=== PATIENT | male | born 1970 | race African-American/Black ===

== ENCOUNTER → 2018-02-08 17:03 | Outpatient (CLI) | payer MEDICAID, SELFPAY | PROVIDERS: Family Provider Family Medicine Geriatric Medicine; PCP Family Medicine Geriatric Medicine; Visit Provider Family Medicine Geriatric Medicine | DX: E23.6 Other disorders of pituitary gland (principal); F52.0 Hypoactive sexual desire disorder | CPT/HCPCS: 36415; 84403; 84443 ==

== ENCOUNTER → 2018-07-26 16:17 | Outpatient (CLI) | payer MEDICAID, SELFPAY ==
[2018-07-26 17:20] LABS: Absolute Neutrophil Count 4.3 X10^3/uL (2.0-7.7); Basophil# 0.06 X10^3/uL; Basophil% 0.8 % (0-1); Eosinophils% 8.1 % (0-5); Hematocrit 43.9 % (40-54); Hemoglobin 14.5 g/dl (13.0-16.5); Lymphocyte % 26.9 % (19-41); Mean Corpuscular Hgb 28.2 pg (27.0-32.0); Mean Corpuscular Volume 85.2 fL (80-94); Mean Platelet Vol. 11.7 fl (6.2-12.0); Monocyte% 6.7 % (0-10); Neutrophil # 4.27 X10^3/uL (2.7-7.7); Neutrophil % 57.4 % (47-70); Platelet Count 165 K/mm3 (150-450); RBC Distribution Width CV 15.2 % (11.6-14.6); RBC Distribution Width SD 46.9 fl (35.1-43.9); Red Blood Count 5.15 M/mm3 (4.6-6.2); White Blood Count 7.4 K/mm3 (4.4-11.0)
[2018-07-26 17:23] LABS: POSITIVE COUNT NO; POSITIVE DIFFERENTIAL NO; POSITIVE MORPHOLOGY NO
[2018-07-26 17:51] LABS: AST(SGOT) 26 U/L (15-37); Alanine Aminotransfer ALT/SGPT 46 U/L (16-61); Albumin, Serum 3.9 g/dL (3.2-5.0); Alkaline Phosphatase 101 U/L (45-117); Anion Gap 10 (5-15); BUN 10 mg/dL (7-18); BUN/Creat Ratio 8.1 RATIO (10-20); Calcium,Total 8.8 mg/dL (8.5-10.1); Chloride 105 mmol/L (98-107); Creatinine, Serum 1.24 mg/dL (0.70-1.30); EST Glomerular Filtration Rate 66 mL/min (>60); Est Glom Filt Rate - Afr Amer 80 mL/min (>60); Globulin 3.9 g/dL (2.2-4.2); Glucose 93 mg/dL (74-106); Potassium 3.9 mmol/L (3.5-5.1); Protein, Total 7.8 g/dL (6.4-8.2); Sodium Level 142 mmol/L (136-145); Thyroid Stim Hormone (TSH) 0.85 uIU/mL (0.358-3.74)
== END ==
PROVIDERS: Family Provider Family Medicine Geriatric Medicine; PCP Family Medicine Geriatric Medicine; Visit Provider Family Medicine Geriatric Medicine
DX: R53.83 Other fatigue (principal)
CPT/HCPCS: 36415; 80053; 84443; 85025

== ENCOUNTER → 2019-08-01 | Outpatient (CLI) | payer SELFPAY ==
[2016-07-25 10:09] VITALS: BMI 23.9
[2019-08-01 17:44] LABS: Absolute Lymphocyte Count 2.36 X10^3/uL (0.83-4.51); Absolute Neutrophil Count 3.6 X10^3/uL (2.0-7.7); Basophil# 0.08 X10^3/uL; Basophil% 1.1 % (0-1); Eosinophil# 0.55 X10^3/uL; Eosinophils% 7.6 % (0-5); Hematocrit 44.7 % (40-54); Hemoglobin 14.3 g/dL (13.0-16.5); Lymphocyte # 2.36 X10^3/ul (4.0); Lymphocyte % 32.8 % (19-41); Mean Corpuscular Hgb 27.8 pg (27.0-32.0); Mean Corpuscular Volume 86.8 fL (80-94); Mean Platelet Vol. 11.6 fl (6.2-12.0); Monocyte# 0.55 X10^3/uL; Monocyte% 7.6 % (0-10); NRBC Flagged by Analyzer 0 % (0-5); Neutrophil # 3.64 X10^3/uL (2.7-7.7); Neutrophil % 50.6 % (47-70); Platelet Count 191 K/mm3 (150-450); RBC Distribution Width CV 14.9 % (11.6-14.6); RBC Distribution Width SD 47.9 fl (35.1-43.9); Red Blood Count 5.15 M/mm3 (4.6-6.2); White Blood Count 7.2 K/mm3 (4.4-11.0)
[2019-08-01 18:19] LABS: AST(SGOT) 33 U/L (15-37); Alanine Aminotransfer ALT/SGPT 49 U/L (16-61); Albumin, Serum 3.8 g/dL (3.2-5.0); Alkaline Phosphatase 90 U/L (45-117); Anion Gap 8 (5-15); BUN 7 mg/dL (7-18); BUN/Creat Ratio 5.9 RATIO (10-20); Calcium,Total 8.9 mg/dL (8.5-10.1); Chloride 107 mmol/L (98-107); Creatinine, Serum 1.18 mg/dL (0.70-1.30); EST Glomerular Filtration Rate 70 mL/min (>60); Est Glom Filt Rate - Afr Amer 85 mL/min (>60); Globulin 3.7 g/dL (2.2-4.2); Glucose 130 mg/dL (74-106); Potassium 3.7 mmol/L (3.5-5.1); Protein, Total 7.5 g/dL (6.4-8.2); Sodium Level 141 mmol/L (136-145); Thyroid Stim Hormone (TSH) 0.72 uIU/mL (0.358-3.74)
== END | disposition home or self-care (01) ==
LOC: POLAB3 16:08
PROVIDERS: Family Provider Family Medicine Geriatric Medicine; PCP Family Medicine Geriatric Medicine; Visit Provider Family Medicine Geriatric Medicine
DX: I10 Essential (primary) hypertension (principal); F52.8 Other sexual dysfunction not due to a substance or known physiological condition
CPT/HCPCS: 36415; 80053; 84403; 84443; 85025

== ENCOUNTER → 2022-02-17 | Outpatient (CLI) | payer OTHER, SELFPAY ==
[2022-02-17 17:00] LABS: Absolute Lymphocyte Count 1.68 X10^3/uL (0.83-4.51); Absolute Neutrophil Count 4.6 X10^3/uL (2.0-7.7); Basophil# 0.06 X10^3/uL; Basophil% 0.8 % (0-1); Eosinophil# 0.28 X10^3/uL; Eosinophils% 3.9 % (0-5); Hematocrit 43.3 % (40-54); Lymphocyte # 1.68 X10^3/ul (0.83-4.51); Lymphocyte % 23.7 % (19-41); Mean Corp Hgb Conc 32.3 g/dL (32-36); Mean Corpuscular Hgb 27.9 pg (27.0-32.0); Mean Corpuscular Volume 86.4 fL (80-94); Mean Platelet Vol. 11.1 fl (6.2-12.0); Monocyte# 0.47 X10^3/uL; Monocyte% 6.6 % (0-10); NRBC Flagged by Analyzer 0 % (0-5); Neutrophil # 4.58 X10^3/uL (2.7-7.7); Neutrophil % 64.7 % (47-70); Platelet Count 230 K/mm3 (150-450); RBC Distribution Width CV 14.7 % (11.6-14.6); RBC Distribution Width SD 46.9 fl (35.1-43.9); Red Blood Count 5.01 M/mm3 (4.6-6.2); White Blood Count 7.1 K/mm3 (4.4-11.0)
[2022-02-17 17:37] LABS: AST(SGOT) 25 U/L (15-37); Alanine Aminotransfer ALT/SGPT 31 U/L (16-61); Alkaline Phosphatase 84 U/L (45-117); Anion Gap 9 (5-15); BUN 8 mg/dL (7-18); BUN/Creat Ratio 6.6 RATIO (10-20); Calcium,Total 8.8 mg/dL (8.5-10.1); Chloride 107 mmol/L (98-107); Creatinine, Serum 1.22 mg/dL (0.70-1.30); EST Glomerular Filtration Rate 67 mL/min (>60); Est Glom Filt Rate - Afr Amer 81 mL/min (>60); Globulin 3.9 g/dL (2.2-4.2); Glucose 155 mg/dL (74-106); Potassium 3.6 mmol/L (3.5-5.1); Protein, Total 7.9 g/dL (6.4-8.2); Sodium Level 138 mmol/L (136-145)
[2022-02-18 12:52] LABS: Hemoglobin A1c 5.9 % (3.8-5.6)
== END | disposition home or self-care (01) ==
LOC: POLAB3 16:03
PROVIDERS: PCP Family Medicine Geriatric Medicine; Visit Provider Family Medicine Geriatric Medicine
DX: I10 Essential (primary) hypertension (principal); E23.6 Other disorders of pituitary gland; R73.9 Hyperglycemia, unspecified
CPT/HCPCS: 36415; 80053; 83036; 84403; 84443; 85025

== ENCOUNTER 2022-03-11 13:55 | Day surgery (SDC) | payer OTHER, SELFPAY ==
[2022-03-11] VITALS (7 sets, daily range): BP systolic 113–141; BP diastolic 67–91; PULSE 48–63; RESP 16–18; TEMP 36.2–37.1; O2SAT 100; BMI 33.7
[2022-03-11] MEDS: Lactated Ringers 1,000 ML 15 ML IV (14:26)
--- NOTE | 2022-03-11 15:15 | COLBX_PTH ---
PATIENT: RAFAT SAUCEDO LOC: EN U#:[id number] AGE/SX: 51/M ROOM: RE03/11/[address]: Dr. Solomon Morales DO : 1970 BED: DIS: 03/11/2022 SPEC #: [id number] RECD: 03/11/22 17:01 STATUS: DARLENE RIO #: [id number] YESENIA: 03/11/22 15:[address]: Solomon Morales DEPT: SURGICAL PATHOLOGY RECD BY: Holly Arthur ENTERED: 03/12/22 11:24 SP TYPE: COLON BX TRACEY DR: Dr. Gagandeep Huynh MD Tissues: A - Ileum, NOS B - COLON BIOPSY C - Sigmoid colon biopsy Procedures: Surgery Specimen Level IV HEADER OPERATION: Colonoscopy with biopsies ? open access (MAC) PRE-OP DIAGNOSIS: Screening TISSUE SUBMITTED: A ? Terminal ileum biopsy, B ? Random colon biopsy, C ? Sigmoid and rectum biopsy MICROSCOPIC DIAGNOSIS A. Terminal ileum, biopsy: Fragments of small intestinal mucosa, no pathologic diagnosis. B. Colon, random biopsy: Focal acute colitis. See microscopic description and comment. C. Sigmoid colon and rectum, biopsy: Moderate focal acute colitis. See microscopic description and comment. SJ:nathaniel 03/13/2022 COMMENT B & C. Correlation with clinical, endoscopic findings and appropriate follow up are necessary. MICROSCOPIC DESCRIPTION Slides are reviewed. B. The specimen shows fragments of colonic mucosa with focal minimal acute and chronic inflammatory cell infiltrate in the lamina propria, minimal cryptitis and crypt abscesses. Glandular distortion or granulomas are not seen. No evidence of dysplasia. C. The specimen shows fragments of colonic mucosa with focal moderate acute and chronic inflammatory cell infiltrate in the lamina propria, cryptitis and crypt abscesses. Glandular distortion or granulomas are not seen. No evidence of dysplasia. GROSS DESCRIPTION A - Received in fixative is one container labeled with the patient's name and designated terminal ileum biopsy. The specimen consists of two irregular fragments of light rodriguez soft tissue that in aggregate measure 0.7 x 0.3 x 0.1 cm. The specimen is totally submitted in one cassette. B - Received in fixative is one container labeled with the patient's name and designated random colon biopsy. The specimen consists of multiple irregular fragments of light rodriguez soft tissue that in aggregate measure 2.5 x 1 x 0.1 cm. The specimen is totally submitted in one cassette. C - Received in fixative is one container labeled with the patient's name and designated sigmoid and rectum. The specimen consists of multiple irregular fragments of light rodriguez soft tissue that in aggregate measure 1.2 x 0.5 x 0.1 cm. The specimen is totally submitted in one cassette. / AM:nathaniel 03/12/2022 TC:2 CPT: 67396 x3
--- NOTE | 2022-03-11 15:17 | HP.PCM_ITS ---
HPI - General HPI Narrative RAFAT SAUCEDO, is a 51 M who presents today for screening colonoscopy. He has past medical history of hyperlipidemia. He is not take any medicines on a daily basis. He is not have any abdominal pain. He is not have any chest pain or shortness of breath. He is not have any nausea, vomiting or diarrhea. He has no family history of colon or or GI malignancy. [facility] Medical History (Updated 03/05/22 @ 10:39 by Christiane Chakraborty) Biceps muscle tear Hyperlipidemia Melena Poor historian Smoker Wears glasses Home Medications albuterol sulfate [Ventolin HFA] 1 - 2 puff INHALATION Q4H PRN PRN #1 inhaler 0 12/10/15 [Rx Last Taken Unknown] Allergy/AdvReac Type Severity Reaction Status Date / Time No Known Allergies Allergy Verified 03/11/22 14:15 Family History (Updated 02/21/22 @ 13:43 by Tammy Hernandez) Father Myocardial infarction Surgical History (Updated 02/21/22 @ 13:42 by Tammy Hernandez) History of surgery on upper extremity History of surgery on wrist Social History (Updated 02/21/22 @ 13:44 by Tammy Hernandez) Smoking Status: Current some day smoker tobacco type: e-cigarettes Electronic Cigarette Use: with nicotine ROS Review of Systems ROS Unobtainable: other Constitutional Constitutional: Denies fatigue, fever(s), poor appetite, weight gain or weight loss ENT HEENT: Denies mouth lesions Cardiovascular Cardiovascular: Denies abdominal bloating, abdominal edema or abdominal pain Respiratory/Chest Respiratory/Chest: Denies change in mental status, change in phlegm color, chest congestion or chest tightness Gastrointestinal Gastrointestinal: Denies belching, bloating, change in bowel habits, change in stool character, chewing difficulty, coffee ground emesis, constipation, cram ping, diarrhea, dyspepsia, dysphagia, early satiety, excessive flatus, fecal incontinence, heartburn, hematemesis, hematochezia, hemorrhoids, loose stools, melena, nausea, odynophagia, rectal bleeding, tenesmus, vomiting or weight changes Genitourinary Genitourinary: Denies abdominal discomfort, burning urination or itching Musculoskeletal Musculoskeletal: Reports as per HPI; Denies muscle weakness or myalgias Integumentary Integumentary: Denies jaundice Neurologic Neurologic: Denies lack of coordination or weakness Psychiatric Psychiatric: Denies confusion, depression, memory loss, mood swings, paranoia or suicidal ideation Endocrine Endocrinology: Denies systems reviewed and no addt'l complaints, except as documented Hematologic/Lymphatic Hematologic/Lymphatic: Denies anemia, easy bleeding, easy bruising or lymphadenopathy Allergic/Immunologic Allergic/Immunologic: Denies systems reviewed and no addt'l complaints, except as documented Vital Signs Vital Signs Vital Signs: 03/11/22 14:17 03/11/22 14:18 Temperature 97.4 F L Temperature Source Temporal Pulse Rate 61 Respiratory Rate 18 Respiratory Pattern Normal Blood Pressure 139/78 H Blood Pressure Mean 98 Blood Pressure Source Monitor Blood Pressure Position Semi-Fowlers Blood Pressure Location Left Arm Pulse Ox 100 Oxygen Delivery Method Room Air Weight Weight: 184 lb 9.6 oz Body Mass Index (BMI) 33.7 Physical Exam Const alert, oriented x3, no apparent distress, healthy appearing and well nourished General Appearance: cooperative, comfortable, well kempt and well developed Orientation / Consciousness: awake and oriented to person HEENT Head and Scalp: normocephalic and atraumatic Face and Sinus: normal facial exam Mouth: oral and palatal mucosa normal Eyes General Eye: normal appearance of both eyes Neck full ROM Lymph Lymphatic: no lymphadenopathy noted Chest inspection of chest normal Resp normal respiratory effort and no use of accessory muscles Cardio regular rate and regular rhythm GI normal to inspection, nondistended, normoactive bowel sounds, soft to palpation, non-tender, non-distended and no masses Auscultation: normoactive bowel sounds Palpation: soft Percussion: normal to percussion Rectal Exam: visual inspection normal and normal sphincter tone no CVA tenderness Back/Spine no CVA tenderness and normal ROM Extremity normal to inspection Peripheral Pulses: Yes pulses 2+ throughout Skin no rashes or lesions noted General Skin Exam: no breakdown, elasticity normal and turgor normal Neuro oriented x3 Motor Exam: strength 5/5 throughout Psych mental status grossly normal Appearance: grossly normal Attitude: calm Activity / Motor Behavior: appropriate eye contact Speech: normal speech Thought Process: normal thought process Thought Content: normal thought content Attention / Concentration: attention grossly intact Memory / Cognition: memory grossly intact Insight: insight good Judgement: judgement good Assessment & Plan Assessment/Plan (1) Encounter for screening for malignant neoplasm of colon: PLAN: He was explained alternatives, risk, benefits include not withstanding bleeding, infection, sepsis, perforation, need for emergent surgery . Have an ASA of 1.
--- NOTE | 2022-03-11 15:59 | OP.COLON_ITS ---
Patient Name: Chriss Castro Procedure Date: 03/11/2022 3:24 PM Date of : 1970 Age: 51 Procedure: Colonoscopy Indications: Screening for colorectal malignant neoplasm Providers: Solomon Morales DO Medicines: Propofol per Anesthesia Patient Profile: This is a 51 year old male. Refer to note in patient chart for documentation of history and physical. Last Colonoscopy: none. The patient's first colonoscopy is today. Complications: No immediate complications. Procedure: Pre-Anesthesia Assessment: - Prior to the procedure, a History and Physical was performed, and patient medications and allergies were reviewed. The patient is competent. The risks and benefits of the procedure and the sedation options and risks were discussed with the patient. All questions were answered and informed consent was obtained. Patient identification and proposed procedure were verified by the physician in the pre-procedure area. Mental Status Examination: alert and oriented. Airway Examination: normal oropharyngeal airway and neck mobility. Respiratory Examination: clear to auscultation. CV Examination: normal. Prophylactic Antibiotics: The patient does not require prophylactic antibiotics. Prior Anticoagulants: The patient has taken no previous anticoagulant or antiplatelet agents. After reviewing the risks and benefits, the patient was deemed in satisfactory condition to undergo the procedure. The anesthesia plan was to use moderate sedation / analgesia (conscious sedation). Immediately prior to administration of medications, the patient was re-assessed for adequacy to receive sedatives. The heart rate, respiratory rate, oxygen saturations, blood pressure, adequacy of pulmonary ventilation, and response to care were monitored throughout the procedure. The physical status of the patient was re-assessed after the procedure. After I obtained informed consent, the scope was passed under direct vision. Throughout the procedure, the patient's blood pressure, pulse, and oxygen saturations were monitored continuously. The colonoscope was introduced through the anus and advanced to the terminal ileum. The colonoscopy was performed without difficulty. The patient tolerated the procedure well. The quality of the bowel preparation was good. Moderate Sedation: Moderate (conscious) sedation was personally administered by an anesthesia professional. The following parameters were monitored: oxygen saturation, heart rate, blood pressure, and response to care. Total physician intraservice time was 15 minutes. Scope In: 3:36:03 PM Scope Withdrawal Time 0 hours 11 minutes 57 seconds Scope Out: 3:50:45 PM Total Procedure Duration Time 0 hours 14 minutes 42 seconds Findings: The perianal and digital rectal examinations were normal. Inflammation was found in a continuous and circumferential pattern from the rectum to the descending colon. This was graded as Gómez Score 2 (moderate, with marked erythema, absent vascular pattern, friability, erosions), and when compared to the previous examination, the findings are new. Biopsies were taken with a cold forceps for histology. Verification of patient identification for the specimen was done. Estimated blood loss was minimal. The terminal ileum appeared normal. Biopsies were taken with a cold forceps for histology. Verification of patient identification for the specimen was done. Estimated blood loss was minimal. Impression: - Moderately active (Gómez Score 2) left-sided ulcerative colitis, new since the last examination. Biopsied. - The examined portion of the ileum was normal. Biopsied. Recommendation: - Discharge patient to home. - Resume previous diet. - Continue present medications. - Await pathology results. - Repeat colonoscopy in 1 year for surveillance. - Return to GI office. Procedure Code(s): --- Professional --- 75457, Colonoscopy, flexible; with biopsy, single or multiple CPT copyright 2017 [employer]. All rights reserved. The codes documented in this report are preliminary and upon distribution technician review may be revised to meet current compliance requirements. Solomon Morales DO 03/11/2022 3:58:50 PM This report has been signed electronically. Number of Addenda: 1 Note Initiated On: 03/11/2022 3:24 PM Addendum Number: 1 Addendum Date: 07/01/2022 6:22:03 AM MAC was used as sedation for this procedure. Solomon Morales DO 07/01/2022 6:22:07 AM This report has been signed electronically.
--- NOTE | 2022-03-11 16:00 | OP.CCLET_ITS ---
07/01/2022 Gagandeep Huynh MD [address] [place] [address] Re : Colonoscopy procedure for Chriss Castro Dear Dr. Huynh This procedure was performed on Friday, March 11, 2022. My impressions and recommendations are as follows: Impressions : - Moderately active (Gómez Score 2) left-sided ulcerative colitis, new since the last examination. Biopsied. - The examined portion of the ileum was normal. Biopsied. Recommendations : - Discharge patient to home. - Resume previous diet. - Continue present medications. - Await pathology results. - Repeat colonoscopy in 1 year for surveillance. - Return to GI office. My findings are described in the full procedure note, which is enclosed. If I can be of further assistance, please feel free to contact me at . Sincerely, Solomon Friend, 03/11/2022 3:58:50 PM This report has been signed electronically.
== END 2022-03-11 16:48 | disposition home or self-care (01) ==
LOC: EN 13:58 → AC 14:00
PROVIDERS: PCP Family Medicine Geriatric Medicine; Referring Provider Family Medicine Geriatric Medicine; Visit Provider Internal Medicine Gastroenterology
PROC: 0DJD8ZZ Inspection of Lower Intestinal Tract, Via Natural or Artificial Opening Endoscopic (ICD-10-PCS; CPT 45378; principal; 2022-03-11 15:10)
DX: Z12.11 Encounter for screening for malignant neoplasm of colon (principal); K52.9 Noninfective gastroenteritis and colitis, unspecified; F17.290 Nicotine dependence, other tobacco product, uncomplicated; Z79.899 Other long term (current) drug therapy
CPT/HCPCS: 45380; 88305; J7120; J2405

== ENCOUNTER → 2023-02-19 | Outpatient (CLI) | payer OTHER, SELFPAY ==
[2023-02-19 17:00] LABS: Absolute Lymphocyte Count 1.87 X10^3/uL (0.83-4.51); Absolute Neutrophil Count 4.4 X10^3/uL (2.0-7.7); Basophil# 0.06 X10^3/uL; Basophil% 0.8 % (0-1); Eosinophil# 0.28 X10^3/uL; Eosinophils% 3.9 % (0-5); Hematocrit 43.9 % (40-54); Hemoglobin 14.2 g/dL (13.0-16.5); Lymphocyte # 1.87 X10^3/ul (0.83-4.51); Mean Corp Hgb Conc 32.3 g/dL (32-36); Mean Corpuscular Hgb 28.5 pg (27.0-32.0); Mean Corpuscular Volume 88.2 fL (80-94); Mean Platelet Vol. 11.1 fl (6.2-12.0); Monocyte# 0.57 X10^3/uL; Monocyte% 7.9 % (0-10); NRBC Flagged by Analyzer 0 % (0-5); Neutrophil % 61.3 % (47-70); Platelet Count 193 K/mm3 (150-450); RBC Distribution Width CV 15.4 % (11.6-14.6); RBC Distribution Width SD 49.8 fl (35.1-43.9); Red Blood Count 4.98 M/mm3 (4.6-6.2); White Blood Count 7.2 K/mm3 (4.4-11.0)
[2023-02-19 17:28] LABS: ALB/GLOB Ratio 1.1 RATIO (0.9-2.4); AST(SGOT) 25 U/L (15-37); Alanine Aminotransfer ALT/SGPT 30 U/L (16-61); Alkaline Phosphatase 87 U/L (45-117); Anion Gap 9 (5-15); BUN 9 mg/dL (7-18); BUN/Creat Ratio 7.6 RATIO (10-20); Calcium,Total 8.8 mg/dL (8.5-10.1); Chloride 107 mmol/L (98-107); Creatinine, Serum 1.18 mg/dL (0.70-1.30); EST Glomerular Filtration Rate 69 mL/min (>60); Est Glom Filt Rate - Afr Amer 83 mL/min (>60); Globulin 3.5 g/dL (2.2-4.2); Glucose 100 mg/dL (74-106); Potassium 3.8 mmol/L (3.5-5.1); Protein, Total 7.5 g/dL (6.4-8.2); Sodium Level 137 mmol/L (136-145); Thyroid Stim Hormone (TSH) 0.85 uIU/mL (0.358-3.74)
[2023-02-19 17:57] LABS: Hepatitis C Antibody Non-Reactive (Nonreactive)
== END | disposition home or self-care (01) ==
LOC: POLAB3 14:59
PROVIDERS: PCP Family Medicine Geriatric Medicine; Visit Provider Family Medicine Geriatric Medicine
DX: R53.83 Other fatigue (principal)
CPT/HCPCS: 36415; 80053; 84443; 85025; 86803

== ENCOUNTER → 2023-02-26 | Outpatient (CLI) | payer OTHER, SELFPAY ==
--- NOTE | 2023-02-27 10:34 | PFT_ITS ---
INTRODUCTION: The patient is a 52-year-old -[place]aced[place] male who presents for pulmonary function studies secondary to a diagnosis of shortness of breath. Respiratory therapy reported good patient effort. Bronchodilators were used during testing. INTERPRETATION: Forced expiration spirometry demonstrates the presence of a mild large airways obstructive ventilatory defect. There was a significant response to aerosolized bronchodilators. Spirograms are of good quality but do not plateau indicating slow emptying of the lungs. Body plethysmography was performed and revealed a decreased TLC to 5.04 L, 74% of predicted, indicative of a mild restrictive ventilatory impairment. Diffusing capacity by single breath CO is within normal limits. IMPRESSION: Partially reversible mild mixed ventilatory defect with preserved diffusing capacity.
== END | disposition home or self-care (01) ==
PROVIDERS: PCP Family Medicine Geriatric Medicine; Referring Provider Family Medicine Geriatric Medicine; Visit Provider Family Medicine Geriatric Medicine
DX: R06.02 Shortness of breath (principal)
CPT/HCPCS: 94060; 94726; 94729

== ENCOUNTER 2023-05-21 05:46 | Day surgery (SDC) | payer OTHER, SELFPAY ==
[2023-05-21 06:01] VITALS: BP 118/79; PULSE 70; RESP 16; TEMP 36.6; O2SAT 98; BMI 33.0
[2023-05-21] MEDS: Lactated Ringers 1,000 ML 15 ML IV (06:13)
--- NOTE | 2023-05-21 06:30 | COLBX_PTH ---
PATIENT: RAFAT SAUCEDO LOC: EN U#:[id number] AGE/SX: 53/M ROOM: RE05/21/[address]: Dr. Solomon Morales DO : 1970 BED: DIS: 05/21/2023 SPEC #: [id number] RECD: 05/21/23 08:06 STATUS: DARLENE RIO #: [id number] YESENIA: 05/21/23 06:[address]: Solomon Morales DEPT: SURGICAL PATHOLOGY RECD BY: Holly Arthur ENTERED: 05/21/23 10:30 SP TYPE: COLON BX OT DR: Dr. Gagandeep Huynh MD Tissues: Rectum, NOS Procedures: Surgery Specimen Level IV HEADER OPERATION: Colonoscopy PRE-OP DIAGNOSIS: History of ulcerative colitis TISSUE SUBMITTED: Rectum biopsy MICROSCOPIC DIAGNOSIS Rectum, biopsy: Fragments of colonic mucosa with mild glandular distortion and prominent lymphoid aggregates. Negative for active inflammation. SJ: 05/22/2023 COMMENT The finding may represent quiescent colitis. Correlation with clinical, endoscopic findings and appropriate follow up are necessary. MICROSCOPIC DESCRIPTION Slides are reviewed. GROSS DESCRIPTION Received is one container labeled with the patient name and designated rectum. The specimen consists of multiple irregular fragments of light rodriguez soft tissue that in aggregate measure .5 x .5 x .1 cm. The specimen is totally submitted in one cassette. / ZAMZAM:jose juan 05/21/23 TC: 5 [facility]: [id number]
--- NOTE | 2023-05-21 06:40 | HP.PCM_ITS ---
History and Physical Date of Admission: 05/21/23 51 M who presented last year for screening colonoscopy. He has past medical history of hyperlipidemia. He is not take any medicines on a daily basis. He is not have any abdominal pain. He is not have any chest pain or shortness of breath. He is not have any nausea, vomiting or diarrhea. He has no family history of colon or or GI malignancy. He underwent colonoscopy last year was discovered to have ulcerative colitis and he comes in for surveillance colonoscopy [facility] Medical History (Updated 03/05/22 @ 10:39 by Christiane Chakraborty) Biceps muscle tear Hyperlipidemia Melena Poor historian Smoker Wears glasses Home Medications albuterol sulfate [Ventolin HFA] 1 - 2 puff INHALATION Q4H PRN PRN #1 inhaler 12/10/15 [Rx Last Taken Unknown] Allergy/AdvReac Type Severity Reaction Status Date / Time No Known Allergies Allergy Verified 03/11/22 14:15 Family History (Updated 02/21/22 @ 13:43 by Tammy Hernandez) Father Myocardial infarction Surgical History (Updated 02/21/22 @ 13:42 by Tammy Hernandez) History of surgery on upper extremity History of surgery on wrist Social History (Updated 02/21/22 @ 13:44 by Tammy Hernandez) Smoking Status: Current some day smoker tobacco type: e-cigarettes Electronic Cigarette Use: with nicotine ROS Review of Systems ROS Unobtainable: other Constitutional Constitutional: Denies fatigue, fever(s), poor appetite, weight gain or weight loss ENT HEENT: Denies mouth lesions Cardiovascular Cardiovascular: Denies abdominal bloating, abdominal edema or abdominal pain Respiratory/Chest Respiratory/Chest: Denies change in mental status, change in phlegm color, chest congestion or chest tightness Gastrointestinal Gastrointestinal: Denies belching, bloating, change in bowel habits, change in stool character, chewing difficulty, coffee ground emesis, constipation, cramping, diarrhea, dyspepsia, dysphagia, early satiety, excessive flatus, fecal incontinence, heartburn, hematemesis, hematochezia, hemorrhoids, loose stools, melena, nausea, odynophagia, rectal bleeding, tenesmus, vomiting or weight ch anges Genitourinary Genitourinary: Denies abdominal discomfort, burning urination or itching Musculoskeletal Musculoskeletal: Reports as per HPI; Denies muscle weakness or myalgias Integumentary Integumentary: Denies jaundice Neurologic Neurologic: Denies lack of coordination or weakness Psychiatric Psychiatric: Denies confusion, depression, memory loss, mood swings, paranoia or suicidal ideation Endocrine Endocrinology: Denies systems reviewed and no addt'l complaints, except as documented Hematologic/Lymphatic Hematologic/Lymphatic: Denies anemia, easy bleeding, easy bruising or lymphadenopathy Allergic/Immunologic Allergic/Immunologic: Denies systems reviewed and no addt'l complaints, except as documented Vital Signs Vital Signs Vital Signs: 03/11/2214:17 03/11/2214:18 Temperature 97.4 F L Temperature Source Temporal Pulse Rate 61 Respiratory Rate 18 Respiratory Pattern Normal Blood Pressure 139/78 H Blood Pressure Mean 98 Blood Pressure Source Monitor Blood Pressure Position Semi-Fowlers Blood Pressure Location Left Arm Pulse Ox 100 Oxygen Delivery Method Room Air Weight Weight: 184 lb 9.6 oz Body Mass Index (BMI) 33.7 Physical Exam Const alert, oriented x3, no apparent distress, healthy appearing and well nourished General Appearance: cooperative, comfortable, well kempt and well developed Orientation / Consciousness: awake and oriented to person HEENT Head and Scalp: normocephalic and atraumatic Face and Sinus: normal facial exam Mouth: oral and palatal mucosa normal Eyes General Eye: normal appearance of both eyes Neck full ROM Lymph Lymphatic: no lymphadenopathy noted Chest inspection of chest normal Resp normal respiratory effort and no use of accessory muscles Cardio regular rate and regular rhythm GI normal to inspection, nondistended, normoactive bowel sounds, soft to palpation, non-tender, non-distended and no masses Auscultation: normoactive bowel sounds Palpation: soft Percussion: normal to percussion Rectal Exam: visual inspection normal and normal sphincter tone no CVA tenderness Back/Spine no CVA tenderness and normal ROM Extremity normal to inspection Peripheral Pulses: Yes pulses 2+ throughout Skin no rashes or lesions noted General Skin Exam: no breakdown, elasticity normal and turgor normal Neuro oriented x3 Motor Exam: strength 5/5 throughout Psych mental status grossly normal Appearance: grossly normal Attitude: calm Activity / Motor Behavior: appropriate eye contact Speech: normal speech Thought Process: normal thought process Thought Content: normal thought content Attention / Concentration: attention grossly intact Memory / Cognition: memory grossly intact Insight: insight good Judgement: judgement good Assessment & Plan Assessment/Plan (1) ulcerative colitis: PLAN: He was explained alternatives, risk, benefits include not withstanding bleeding, infection, sepsis, perforation, need for emergent surgery . Have an ASA of 1.
[2023-05-21 07:06] VITALS: BP 110/56; BP 118/79; PULSE 57; RESP 16; TEMP 36.5; O2SAT 100
--- NOTE | 2023-05-21 07:07 | OP.CCLET_ITS ---
05/21/2023 Gagandeep Huynh MD [address] [place] [address] Re : Colonoscopy procedure for Chriss Matthew Dear Dr. Huynh This procedure was performed on April. My impressions and recommendations are as follows: Impressions : - The sigmoid colon, descending colon, splenic flexure, transverse colon, hepatic flexure, ascending colon, cecum, recto-sigmoid colon and terminal ileum are normal. - Mild (Gómez Score 1) ulcerative colitis, improved since the last examination. Biopsied. - Inactive (Gómez Score 0) ulcerative colitis, improved since the last examination. - The examined portion of the ileum was normal. Recommendations : - Discharge patient to home. - Resume previous diet. - Continue present medications. - Await pathology results. - Repeat colonoscopy in 2 years for surveillance. My findings are described in the full procedure note, which is enclosed. If I can be of further assistance, please feel free to contact me at . Sincerely, Solomon Morales, 05/21/2023 7:06:11 AM This report has been signed electronically.
--- NOTE | 2023-05-21 07:07 | OP.COLON_ITS ---
Patient Name: Chriss Castro Procedure Date: 05/21/2023 6:07 AM Date of : 1970 Age: 53 Procedure: Colonoscopy Indications: Left-sided chronic ulcerative colitis Providers: Solomon Morales DO Medicines: Monitored Anesthesia Care Patient Profile: This is a 53 year old male. Refer to note in patient chart for documentation of history and physical. Last Colonoscopy: 1 year ago. Complications: No immediate complications. Procedure: Pre-Anesthesia Assessment: - Prior to the procedure, a History and Physical was performed, and patient medications and allergies were reviewed. The risks and benefits of the procedure and the sedation options and risks were discussed with the patient. All questions were answered and informed consent was obtained. Patient identification and proposed procedure were verified by the physician. Mental Status Examination: alert and oriented. Airway Examination: normal oropharyngeal airway and neck mobility. Respiratory Examination: clear to auscultation. CV Examination: normal. Prophylactic Antibiotics: The patient does not require prophylactic antibiotics. Prior Anticoagulants: The patient has taken no anticoagulant or antiplatelet agents. After reviewing the risks and benefits, the patient was deemed in satisfactory condition to undergo the procedure. The anesthesia plan was to use monitored anesthesia care (MAC). Immediately prior to administration of medications, the patient was re-assessed for adequacy to receive sedatives. The heart rate, respiratory rate, oxygen saturations, blood pressure, adequacy of pulmonary ventilation, and response to care were monitored throughout the procedure. The physical status of the patient was re-assessed after the procedure. After I obtained informed consent, the scope was passed under direct vision. Throughout the procedure, the patient's blood pressure, pulse, and oxygen saturations were monitored continuously. The pediatric colonoscope was introduced through the anus and advanced to the terminal ileum. The colonoscopy was performed without difficulty. The patient tolerated the procedure well. The quality of the bowel preparation was good. The terminal ileum, ileocecal valve, appendiceal orifice, and rectum were photographed. Scope In: 6:45:51 AM Scope Withdrawal Time 0 hours 8 minutes 27 seconds Scope Out: 6:56:54 AM Total Procedure Duration Time 0 hours 11 minutes 3 seconds Findings: The perianal and digital rectal examinations were normal. The recto-sigmoid colon, sigmoid colon, descending colon, splenic flexure, transverse colon, hepatic flexure, ascending colon, cecum and ileum appeared normal. Inflammation was found in a continuous and circumferential pattern from the anus to the rectum. This was graded as Gómez Score 1 (mild, with erythema, decreased vascular pattern, mild friability), and when compared to the previous examination, the findings are improved. Biopsies were taken with a cold forceps for histology. Verification of patient identification for the specimen was done. Estimated blood loss was minimal. Inflammation was not found based on the endoscopic appearance of the mucosa in the colon. This was graded as Gómez Score 0 (normal or inactive disease), and when compared to the previous examination, the findings are improved. The terminal ileum appeared normal. Impression: - The sigmoid colon, descending colon, splenic flexure, transverse colon, hepatic flexure, ascending colon, cecum, recto-sigmoid colon and terminal ileum are normal. - Mild (Gómez Score 1) ulcerative colitis, improved since the last examination. Biopsied. - Inactive (Gómze Score 0) ulcerative colitis, improved since the last examination. - The examined portion of the ileum was normal. Recommendation: - Discharge patient to home. - Resume previous diet. - Continue present medications. - Await pathology results. - Repeat colonoscopy in 2 years for surveillance. Procedure Code(s): --- Professional --- 05299, Colonoscopy, flexible; with biopsy, single or multiple CPT copyright 2021 [employer]. All rights reserved. The codes documented in this report are preliminary and upon medical biller coder review may be revised to meet current compliance requirements. Solomon Morales DO 05/21/2023 7:06:11 AM This report has been signed electronically. Number of Addenda: 0 Note Initiated On: 05/21/2023 6:07 AM
[2023-05-21 07:11] VITALS: BP 108/53; BP 118/79; PULSE 54; RESP 16; O2SAT 100
[2023-05-21 07:16] VITALS: BP 104/57; BP 118/79; PULSE 52; RESP 16; O2SAT 100
[2023-05-21 07:21] VITALS: BP 105/53; BP 118/79; PULSE 51; RESP 16; TEMP 36.6; O2SAT 100
[2023-05-21 07:41] VITALS: BP 118/79
== END 2023-05-21 07:55 | disposition home or self-care (01) ==
LOC: EN 05:46 → AC 05:47
PROVIDERS: PCP Family Medicine Geriatric Medicine; Referring Provider Family Medicine Geriatric Medicine; Visit Provider Internal Medicine Gastroenterology
PROC: 0DJD8ZZ Inspection of Lower Intestinal Tract, Via Natural or Artificial Opening Endoscopic (ICD-10-PCS; CPT 45378; principal; 2023-05-21 06:25)
DX: Z12.11 Encounter for screening for malignant neoplasm of colon (principal); K51.90 Ulcerative colitis, unspecified, without complications; F17.290 Nicotine dependence, other tobacco product, uncomplicated; E78.5 Hyperlipidemia, unspecified; J45.909 Unspecified asthma, uncomplicated
CPT/HCPCS: 45380; 88305; J7120; J2405

== ENCOUNTER → 2024-06-22 | Outpatient (CLI) | payer OTHER, SELFPAY ==
[2024-06-22 13:17] LABS: Erythrocyte Sedimentation Rate 6 mm/hr (0-20)
[2024-06-22 13:18] LABS: Absolute Lymphocyte Count 2.37 X10^3/uL (0.83-4.51); Absolute Neutrophil Count 3.7 X10^3/uL (2.0-7.7); Basophil# 0.05 X10^3/uL; Basophil% 0.7 % (0-1); Eosinophil# 0.21 X10^3/uL; Eosinophils% 3.1 % (0-5); Hematocrit 43.9 % (40-54); Hemoglobin 13.7 g/dL (13.0-16.5); Lymphocyte # 2.37 X10^3/ul (0.83-4.51); Mean Corp Hgb Conc 31.2 g/dL (32-36); Mean Corpuscular Hgb 27.7 pg (27.0-32.0); Mean Corpuscular Volume 88.7 fL (80-94); Monocyte% 5.9 % (0-10); NRBC Flagged by Analyzer 0 % (0-5); Neutrophil # 3.72 X10^3/uL (2.7-7.7); Neutrophil % 54.9 % (47-70); Platelet Count 167 K/mm3 (150-450); RBC Distribution Width SD 52.2 fl (35.1-43.9); Red Blood Count 4.95 M/mm3 (4.6-6.2); White Blood Count 6.8 K/mm3 (4.4-11.0)
[2024-06-22 13:47] LABS: AST(SGOT) 20 U/L (15-37); Alanine Aminotransfer ALT/SGPT 24 U/L (16-61); Albumin, Serum 3.7 g/dL (3.2-5.0); Alkaline Phosphatase 110 U/L (45-117); Anion Gap 4 (5-15); BUN 11 mg/dL (7-18); BUN/Creat Ratio 10.3 RATIO (10-20); CRP < 2.90 mg/L (0.0-3.0); Calcium,Total 8.8 mg/dL (8.5-10.1); Chloride 111 mmol/L (98-107); Creatinine, Serum 1.07 mg/dL (0.70-1.30); EST Glomerular Filtration Rate 77 mL/min (>60); Est Glom Filt Rate - Afr Amer 93 mL/min (>60); Globulin 3.7 g/dL (2.2-4.2); Glucose 121 mg/dL (74-106); Potassium 3.7 mmol/L (3.5-5.1); Protein, Total 7.4 g/dL (6.4-8.2); Sodium Level 142 mmol/L (136-145)
== END | disposition home or self-care (01) ==
LOC: LAB 09:16
PROVIDERS: PCP Family Medicine Geriatric Medicine; Referring Provider Internal Medicine Gastroenterology; Visit Provider Internal Medicine Gastroenterology
DX: K51.30 Ulcerative (chronic) rectosigmoiditis without complications (principal)
CPT/HCPCS: 36415; 80053; 85025; 85652; 86140

== ENCOUNTER → 2024-07-05 | Outpatient (CLI) | payer OTHER, SELFPAY ==
[2024-07-05 17:21] LABS: Absolute Neutrophil Count 3.8 X10^3/uL (2.0-7.7); Basophil# 0.07 X10^3/uL; Basophil% 0.9 % (0-1); Eosinophil# 0.32 X10^3/uL; Eosinophils% 4.1 % (0-5); Hematocrit 44.2 % (40-54); Hemoglobin 14.1 g/dL (13.0-16.5); Lymphocyte % 39.6 % (19-41); Mean Corp Hgb Conc 31.9 g/dL (32-36); Mean Corpuscular Hgb 28.1 pg (27.0-32.0); Monocyte# 0.51 X10^3/uL; Monocyte% 6.5 % (0-10); NRBC Flagged by Analyzer 0 % (0-5); Neutrophil # 3.81 X10^3/uL (2.7-7.7); Neutrophil % 48.6 % (47-70); Platelet Count 193 K/mm3 (150-450); RBC Distribution Width CV 16.1 % (11.6-14.6); RBC Distribution Width SD 51.7 fl (35.1-43.9); Red Blood Count 5.02 M/mm3 (4.6-6.2); White Blood Count 7.8 K/mm3 (4.4-11.0)
[2024-07-05 18:00] LABS: ALB/GLOB Ratio 1.1 RATIO (0.9-2.4); AST(SGOT) 25 U/L (15-37); Alanine Aminotransfer ALT/SGPT 32 U/L (16-61); Albumin, Serum 3.9 g/dL (3.2-5.0); Alkaline Phosphatase 122 U/L (45-117); Anion Gap 6 (5-15); BUN 8 mg/dL (7-18); BUN/Creat Ratio 7.4 RATIO (10-20); Calcium,Total 8.8 mg/dL (8.5-10.1); Chloride 108 mmol/L (98-107); Cholesterol 211 mg/dL (200); Creatinine, Serum 1.08 mg/dL (0.70-1.30); EST Glomerular Filtration Rate 76 mL/min (>60); Est Glom Filt Rate - Afr Amer 92 mL/min (>60); Globulin 3.7 g/dL (2.2-4.2); Glucose 100 mg/dL (74-106); High Density Lipoprotein 38 mg/dL; Potassium 3.8 mmol/L (3.5-5.1); Protein, Total 7.6 g/dL (6.4-8.2); Sodium Level 139 mmol/L (136-145); Triglycerides 128 mg/dL; Very Low Density Lipoprotein 26 mg/dL (5-40)
== END | disposition home or self-care (01) ==
LOC: LAB 17:03
PROVIDERS: PCP Family Medicine Geriatric Medicine; Referring Provider Family Medicine Geriatric Medicine; Visit Provider Family Medicine Geriatric Medicine
DX: R53.83 Other fatigue (principal); E78.5 Hyperlipidemia, unspecified
CPT/HCPCS: 36415; 80053; 80061; 84443; 85025

== ENCOUNTER → 2025-02-01 | Outpatient (CLI) | payer OTHER, SELFPAY ==
--- NOTE | 2025-02-01 14:21 | NEURO ---
NCS and/or EMG Patient Report Ordering Doctor: Yasir Underwood DATE OF SERVICE: 02/01/25 Chriss presents for electrodiagnostic testing of the left upper limb. He reports numbness in the left fifth digit for the past 3 months. He reports of burning sensation intermittently in the arm. Electrodiagnostic findings: Left median motor nerve demonstrates normal distal latency, amplitude and conduction velocity. Left ulnar motor response is within normal limits. Sensory responses are normal. Normal median and ulnar F?waves. Needle EMG testing was performed the left upper limb. 1+ fibrillations noted in the left lower cervical paraspinals. 1+ positive sharp waves in the flexor carpi ulnaris and pronator teres. Motor unit action potentials are of normal amplitude and duration. Electrodiagnostic impression: This is an abnormal study in the left upper limb 1. Electrodiagnostic findings suggestive of acute left C7 radiculopathy. Consider correlation with cervical spine imaging to evaluate for possible disc displacement/herniation. 2. There is no electrodiagnostic evidence for peripheral neuropathy, including carpal tunnel or cubital tunnel syndrome. Multi Select Codes Neurology Neurology Interp Codes: 24914-76 Musc test done w/n test comp (interp) and 12896-83 Nrv cndj test 7-8 studies (interp)
== END | disposition home or self-care (01) ==
LOC: PSN 13:11
PROVIDERS: PCP Family Medicine Geriatric Medicine; Referring Provider Orthopaedic Surgery Sports Medicine; Visit Provider Orthopaedic Surgery Sports Medicine
DX: G56.03 Carpal tunnel syndrome, bilateral upper limbs (principal)
CPT/HCPCS: 95886; 95910

== ENCOUNTER → 2025-03-11 | Outpatient (CLI) | payer OTHER, SELFPAY ==
--- OUTSIDE RECORDS SUMMARY | 2025-03-11 07:53 | XMS RPT_ITS | CCD ---
Author Organization [facility] Care Team Providers Care Devops Developer Name Role Phone Gagandeep Huynh Chi Primary Care Provider [phone] Lino, Dr. Gagandeep Patel Primary Care Provider Tammy Hernandez Attending Provider Unavailable Lino, Dr. Gagandeep Patel Referring Provider 1([facility])[phone] Solomon Morales Attending Provider 1([facility])[phone] Friend, Dr. Carbajal Other Provider 1([facility])[phone] Lino, Dr. Gagandeep Patel Primary Care Provider 1([facility])[phone] Lino, Dr. Gagandeep Patel Referring Provider Lino, Dr. Gagandeep Patel Other Provider Dr. Lakhwinder Myles Attending Provider 1([facility])[phone] Lino SEALS, Dr. Gagandeep Patel Primary Care Provider 1([facility] )[phone] Lino SEALS, Dr. Gagandeep Patel Referring Provider Friend Dr. Solomon RUIZ Attending Provider Yasir Underwood MD Attending Provider 1([facility])[phone] Yasir Underwood MD Referring Provider 1([facility])[phone] Yasir Underwood MD Other Provider [phone] Jesus SEALS, Dr. Villa Attending Provider Jaye Rush Attending Provider Pradeep SEALS, Dr. Sloan Attending Provider 1([facility])[phone] Lino, Gagandeep Chi Referring Unavailable Lino, Gagandeep Chi Primary Care Unavailable FriendSolomon Attending Unavailable Lino, Gagandeep Chi Referring Unavailable Lino, Gagandeep Chi Primary Care Unavailable Yasir Underwood Attending Unavailable Lino, Gagandeep Chi Referring Unavailable Lino, Gagandeep Chi Primary Care Unavailable Jaye Paniagua Attending Unavailable Luther Fernández Attending Unavailable Lino, Gagandeep Chi Primary Care Unavailable Lino, Gagandeep Chi Primary Care Unavailable Lino, Gagandeep Chi Attending Unavailable Lino, Gagandeep Chi Referring Unavailable ArceliaTonyayn Referring Unavailable Lino, Gagandeep Chi Primary Care Unavailable Jaye Paniagua Attending Unavailable Lino, Gagandeep Chi Primary Care Unavailable Yasir Underwood Attending Unavailable Yasir Underwood Referring Unavailable Lino, Gagandeep Chi Primary Care Unavailable FriendSolomon Attending Unavailable FriendSolomon Referring Unavailable Lino, Gagandeep Chi Primary Care Unavailable Lino, Gagandeep Chi Referring Unavailable Friend, Solomon Attending Unavailable Jaye Paniagua Attending Unavailable Lino, Gagandeep Chi Referring Unavailable Lino, Gagandeep Chi Primary Care Unavailable Daisy Lee Attending Unavailable Lino, Gagandeep Chi Primary Care Unavailable Yasir Underwood Consulting Unavailable Yasir Underwood Referring Unavailable Lino, Gagandeep Chi Primary Care Unavailable Lino, Gagandeep Chi Referring Unavailable FriendSolomon Attending Unavailable Medications Current Medications Medication Drug Class(es) Dates Sig (Normalized) Sig (Original) acetaminophen 325 mg / HYDROcodone bitartrate 5 mg oral tablet (1 source) Opioid Agonist Start: 07-25-2016 take 1 tablet by mouth every six hours as needed Hydrocodone-Aceta minophen Active 1 - 2 TABLET PO EVERY 6 HOURS NEEDED July 25, 2016 10:42am Albuterol Sulfate (7 sources) beta2-Adrenergic Agonist Start: 12-10-2015 take 1 puff(s) by inhalation every four hours as needed Albuterol Sulfate (Ventolin Hfa) 1 INHALER inhaler Active 1 - 2 PUFF INHALATION EVERY 4 HOURS NEEDED December 10, 2015 2:37am Start: 12-10-2015 take 1 puff(s) by in halation every four hours as needed Albuterol Sulfate (Ventolin Hfa) 1 INHALER inhaler Active 1 - 2 PUFF INHALATION EVERY 4 HOURS NEEDED 1 December 10, 2015 2:37am Start: 12-10-2015 Albuterol Sulf ate (Ventolin Hfa) 1 INHALER inhaler Active 1 - 2 NMA INHALATION EVERY 4 HOURS NEEDED as needed for Wheezing December 10, 2015 12:00am Start: 12-10-2015 take 1 puff(s) by in halation every four hours as needed Albuterol Sulfate (Ventolin Hfa) 1 INHALER inhaler Active 1 - 2 PUFF INHALATION EVERY 4 HOURS NEEDED December 10, 2015 12:00am cephalexin 500 mg oral capsule (1 source) Cephalosporin Antibacterial Start: 07-25-2016 take 500 mg by mouth every twelve hours Cephalexin Active 500 MG PO EVERY 12 HOURS July 25, 2016 10:42am docusate sodium 100 mg oral capsule (1 source) Start: 07-25-2016 take 1 capsule by mouth twice daily as needed Docusate Sodium (Colace) 100 MG capsule Active 100 MG PO TWICE DAILY NEEDED July 25, 2016 10:42am mesalamine 1200 mg delayed release oral tablet (6 sources) Aminosalicylate Start: 12-24-2023 End: 12-28-2024 take 2 tablets by mouth once daily Mesalamine 1.2 gram tablet,delayed release (DR/EC) Active 2.4 g PO DAILY 180 December 28, 2024 8:17am promethazine hydrochloride 25 mg oral tablet (1 source) Phenothiazine Start: 07-25-2016 take 25 mg by mouth every four hours as needed Promethazine Active 25 MG PO EVERY 4 HOURS NEEDED July 25, 2016 10:42am Completed/Discontinued Medications Medication Drug Class(es) Dates Sig (Normalized) Sig (Original) folic acid 1 mg oral tablet (18 sources) Start: 04-04-2022 End: 06-22-2024 take 1 tablet by mouth once daily Folic Acid 1 mg tablet Discontinued 1 mg PO DAILY 90 90 June 02, 2023 3:02pm June 22, 2024 8:12am sulfaSALAzine 500 mg oral tablet (18 sources) Aminosalicylate Start: 04-04-2022 End: 06-22-2024 take 1 tablet by mouth every twelve hours at mealtime Sulfasalazine 500 mg tablet Discontinued 1 g PO Q12H 360 90 June 02, 2023 3:02pm June 22, 2024 8:12am give with food (meal/snack) Start: 04-04-2022 End: 12-02-2022 take 1 g by mouth every twelve hours at mealtime Sulfasalazine Discontinued 1 GM PO Q12H 120 30 November 24, 2022 2:02pm December 02, 2022 3:27pm give with food (meal/snack) Problems Active Problems Problem Classification Problem Date Documented Da te Episodic/Chronic Gastrointestinal hemorrhage (1 source) Hematochezia; Translations: [Melena] Episodic Other gastrointestinal disorders (1 source) Alteration in bowel elimination; Translations: [Change in bowel habit] Episodic Other nervous system disorders (6 sources) Carpal tunnel syndrome; Translations: [Carpal tunnel syndrome, bilateral upper limbs] 01-03-2025 Chronic Other nervous system disorders (1 source) Disease of spinal cord, unspecified; Translations: [Disease of spinal cord, unspecified] Onset: 03-08-2025 Chronic Other nervous system disorders (2 sources) Carpal tunnel syndrome, bilateral upper limbs; Translations: [Carpal tunnel syndrome, bilateral upper limbs] Onset: 03-07-2025 Chronic Other screening for suspected conditions (not mental disorders or infectious disease) (7 sources) Patient encounter status; Translations: [Encounter for screening for malignant neoplasm of colon] Episodic Regional enteritis and ulcerative colitis (9 sources) Ulcerative colitis; Translations: [Ulcerative colitis, unspecified, without complications] Onset: 07-21-2024 04-04-2022 Chronic Spondylosis; intervertebral disc disorders; other back problems (3 sources) Neck pain; Translations: [Cervicalgia] Onset: 02-21-2025 02-10-2025 Episodic Past or Other Problems Problem Classification Problem Date Documented Da te Episodic/Chronic Malaise and fatigue (1 source) Other fatigue; Translations: [Other fatigue] Onset: 07-31-2024 Episodic Results Test Name Value Interpretation Reference Range Facil ity Cerv Spine 4 or 5 Viewson Cerv Spine 4 or 5 Views [facility] Imaging Services [address] [place] [id number] Cerv Spine 4 or 5 Views MR#: [id number] Acct: [id number] Name: RAFAT SAUCEDO Rep #: [id number] : 1970 M 54 From: Maurizio Jones MD PCP: Dr. Gagandeep Huynh MD Status: DEP AMB Study: Cerv Spine 4 or 5 Views Date of Exam: 02/21/25 Exam# [id number] Ordering Dr: Jaye Paniagua PA PROCEDURE: CERV SPINE 4 OR 5 VIEWS 02/21/2025 REASON FOR EXAM: PAIN TECHNIQUE: Frontal, lateral, flexion, and extension views of the cervical spine COMPARISON: None FINDINGS: There is loss of the lordosis. There is grade 1 retrolisthesis at C5-6, 0.2 cm with flexion and extension, with no instability demonstrated. There is 20% loss of vertebral body height at C5 and C6. There is degenerative disc disease from C3-7. Soft tissues are unremarkable. Facets are aligned. RAD/Cerv Spine 4 or 5 Views IMPRESSION: There is loss of the lordosis. There is grade 1 retrolisthesis at C5-6, 0.2 cm with flexion and extension, with no instability demonstrated. There is 20% loss of vertebral body height at C5 and C6. MRI or bone scan could be helpful to determine chronicity if clinically indicated. There is degenerative disc disease from C3-7. Reading Location: [facility] CC: HUMAIRA Obrien; Dr. Gagandeep Huynh MD Toolsmith: Signed Normal [facility] Orthopedic Visit Reporton Orthopedic Visit Report [facility] [address] [place] [address] OFFICE VISIT Date of Service: 02/21/25 MR#: [id number] Acct: [id number] Name: RAFAT SAUCEDO Rep #: [id number] : 1970 Provider: HUMAIRA Obrien Age/Sex: 54/M [place] [facility] Status: Signed Intake Vital Signs 01/03/25 13:16 02/21/25 09:08 Height 5 ft 2 in 5 ft 2 in Weight: 160 lb BMI 29.2 Intake Visit Reasons: CERVICAL SPINE Chief Complaint: Patient is having nerve in his fingers left hand Is patient in pain?: No Allergies No Known Allergies Allergy (Verified 02/21/25 09:11) Medications ???Medication ???Instructions ???Recorded ???Confirmed ???Type albuterol sulfate 90 mcg/actuation 1 - 2 puff inhalation Q4H PRN AZ N 03/14/16 02/21/25 Rx aerosol inhaler (Ventolin HFA) Wheezing ##1 mesalamine 1.2 gram tablet,delayed 2.4 g (2 x 1.2 gram) PO DAILY #1 80 12/28/24 02/21/25 Rx release TABLETS Have you fallen in the past year?: No PFSH Medical History Bilateral carpal tunnel syndrome Asthma Wears glasses Poor historian Smoker Melena Hyperlipidemia Biceps muscle tear Surgical History History of colonoscopy History of surgery on wrist History of surgery on upper extremity Family History Father Myocardial infarction Social History Smoking Status: Current some day smoker tobacco type: cigarettes and e-cigarettes Electronic Cigarette Use: with nicotine HPI CERVICAL SPINE Details: This documentation accurately reflects the service provided and the decisions made by me, HUMAIRA Obrien 02/21/25 0907. Part of today???s visit was documented by Edy Valverde MA, acting as scribe. RAFAT SAUCEDO is a 54 year old M here today for cervical spine. Patient states that he is not having any pain in his back. He states that sometimes he has numbness and tingling sometimes in his left hand. This has been going on for 5 months. Says that it has been worsening in that time. Patient states that it started with a burning sensation first in the left arm, then it went away. This burning sensation was higher in his triceps and has since resolved. He currently has a numbness and tingling that extends into the palm of his left hand and goes to several different fingers. The patient does think that it is primarily in the pinky and the ring finger of the left hand, he also mentions that his index finger will trigger and get stuck. But overall it sounds like this numbness and tingling that he gets in his hand involves all of the fingers. Patient denies any surgeries in the past for his cervical spine. When picking up a heavy item sometimes the numbing in his fingers will get worse. Patient denies any injections or physical therapy in his back. Patient denies any diabetes. or blood thinners. Patient does smoke 7 cigarettes a day, but denies any drug use. Patient states that he denies dropping any items from the hands but does feel like the left hand is weaker. Says that sometimes holding a cigarette can be difficult. He states that sometimes his fingers will get stuck. Patient had an EMG test done to assess for carpal tunnel done by Dr. Underwood with the results showing no evidence of carpal tunnel or cubital tunnel syndrome but showing an acute C7 radiculopathy. The patient denies any neck pain. He denies any balance issues. Ortho Exam General General: Yes no acute distress Neurologic: Yes alert and Yes oriented x3 Spine SPINE TESTING CERVICAL THORACIC LUMBAR Musculoskeletal Strength 0=absent - 5=normal Details: Neurological exam of the upper extremities shows 4 - power left finger abduction, all other muscle groups show 5 power. Normal sensation across all dermatomes. No hyperreflexia. No midline or paraspinal tenderness. Krystin's negative. The left hand also shows some mild atrophy of the first dorsal interossei muscle. Coding Level of Care Code Off vis,est,level 3 Diagnoses Degenerative disc disease, cervical M50.30 Cervical myelopathy G95.9 Assessment and Plan Assessment and Plan (1) Degenerative disc disease, cervical: Status: Acute (2) Cervical myelopathy: Orders: Orders Spine Cervical (Routine) Today G95.9 - Disease of spinal cord, unspecified Plan Reviewed prior EMG study which showed findings suggestive of acute left C7 radiculopathy. Consider correlation with cervical spine imaging to evaluate for possible disc displacement/herniati on. There is no electrodiagnostic evidence for peripheral neuropathy, including carpal tunnel or cubital (more content not included)... Normal [facility] NCS and/or EMG Patienton NCS and/or EMG Patient [facility]monary Services/Neurology [address] [place] [address] MR#: [id number] Acct: [id number] Name: RAFAT SAUCEDO Rep #: [id number] : 1970 54 From: Daisy Lee MD Referring Dr: Yasir Underwood MD Status: REG CLI Location: [facility] Date: 02/01/25 Sex: M AA NCS and/or EMG Patient Report Ordering Doctor: Yasir Underwood DATE OF SERVICE: 02/01/25 Rafat presents for electrodiagnostic testing of the left upper limb. He reports numbness in the left fifth digit for the past 3 months. He reports of burning sensation intermittently in the arm. Electrodiagnostic findings: Left median motor nerve demonstrates normal distal latency, amplitude and conduction velocity. Left ulnar motor response is within normal limits. Sensory responses are normal. Normal median and ulnar F???waves. Needle EMG testing was performed the left upper limb. 1+ fibrillations noted in the left lower cervical paraspinals. 1+ positive sharp waves in the flexor carpi ulnaris and pronator teres. Motor unit action potentials are of normal amplitude and duration. Electrodiagnostic impression: This is an abnormal study in the left upper limb 1. Electrodiagnostic findings suggestive of acute left C7 radiculopathy. Consider correlation with cervical spine imaging to evaluate for possible disc displacement/herniati on. 2. There is no electrodiagnostic evidence for peripheral neuropathy, including carpal tunnel or cubital tunnel syndrome. Multi Select Codes Neurology Neurology Interp Codes: 79188-86 Musc test done w/n test comp (interp) and 93973-00 Nrv cndj test 7- 8 studies (interp) 02/01/25 1424 Date Daisy Lee MD CC: Dr. Daisy Lee MD; Dr. Yasir Underwood MD; Dr. Gagandeep Huynh MD Date Dictated: 02/01/251420 Date Transcribed: 02/01/251420 Toolsmith: MARY Signed Normal [facility] Orthopedic Visit Reporton Orthopedic Visit Report [facility] [address] [place] [address] OFFICE VISIT Date of Service: 01/03/25 MR#: [id number] Acct: [id number] Name: RAFAT SAUCEDO Rep #: [id number] : 1970 Provider: Dr. Yasir briscoe MD Age/Sex: 54/M [place] [facility] Status: Signed Intake Vital Signs 05/21/23 06:01 01/03/25 13:16 Height 5 ft 2 in 5 ft 2 in Weight: 180 lb BMI 32.9 Intake Visit Reasons: BL HANDS Chief Complaint: BL hand pain Accompanied by: Self Is patient in pain?: Yes Pain scale (1-10): 1 Allergies No Known Allergies Allergy (Verified 01/03/25 13:19) Medications ???Medication ???Instructions ???Recorded ???Confirmed ???Type albuterol sulfate 90 mcg/actuation 1 - 2 puff inhalation Q4H PRN AZ N 12/10/15 01/03/25 Rx aerosol inhaler (Ventolin HFA) Wheezing ##1 mesalamine 1.2 gram tablet,delayed 2.4 g (2 x 1.2 gram) PO DAILY #1 80 12/28/24 Rx release TABLETS Have you fallen in the past year?: No PFSH Medical History Bilateral carpal tunnel syndrome Asthma Wears glasses Poor historian Smoker Melena Hyperlipidemia Biceps muscle tear Surgical History History of colonoscopy History of surgery on wrist History of surgery on upper extremity Family History Father Myocardial infarction Social History Smoking Status: Current some day smoker tobacco type: cigarettes and e-cigarettes Electronic Cigarette Use: with nicotine HPI BL HANDS Details: This documentation accurately reflects the service provided and the decisions made by me, Dr. Yasir Underwood MD 01/03/25 5515. Part of today???s visit was documented by [ ], acting as scribe. RAFAT SAUCEDO is a 54 year old M here today for bilat CTS. 7 cigs/day. L hand numbness. tips of the finger. 3 months. Getting worse. No aggravating features. Had a distal biceps repair 10 years ago on that side. The worst is on the left side not happening on the right side. Patient has not tried any treatment. The patient has not had nerve conduction studies. He works in [employer] and does not have to do any sort of heavy lifting or repetitive actions with his hands. [id number]. Feels like the numbness and itchiness is going up the arm to about the elbow. Right side fine. Feels like the hand is weak it is difficult to pick things up. Negative flick sign. Coding Level of Care Code Off vis,new,level 3 Diagnoses Bilateral carpal tunnel syndrome G56.03 Assessment and Plan Assessment and Plan (1) Bilateral carpal tunnel syndrome: Status: Acute Plan: RAFAT SAUCEDO is a 54 year old M here today for left CTS. I will go ahead and order NCS L UConnie. Madelin also fit the patient for a night brace wrist splint to start wearing that for the next 6 weeks and follow-up after the NCS. Carpal Tunnel Syndrome (CTS) occurs when the median nerve, which runs through the wrist, becomes compressed. Treatment options vary based on the severity of the condition: Non-Surgical Treatments: Wrist Splinting: Wearing a splint at night to keep the wrist in a neutral position. Activity Modification: Avoiding repetitive wrist movements or adjusting work habits. Physical Therapy: Exercises to improve wrist and hand function. Medications: Anti-inflammatory drugs (NSAIDs) or corticosteroid injections to reduce swelling and pain. Surgical Treatment: Carpal Tunnel Release Surgery: A procedure where the ligament pressing on the median nerve is cut to relieve pressure. This is considered when non-surgical treatments are ineffective. Options are min- open or endoscopic. Orders: Orders NCS and/or EMG - Left Upper Today G56.03 - Carpal tunnel syndrome, bilateral upper limbs Clinical Quality Measures Falls Risk Screening/Assistive Devices Have you fallen in the past year?: No Ortho Exam General General: Yes no acute distress Neurologic: Yes alert and Yes oriented x3 Psychologic: Yes reasonable and appropriate Right Wrist/Hand Skin/Wound: No Swelling and No Ecchymosis Left Wrist/Hand Skin/Wound: Yes CDI, No Swelling, No Ecchymosis, Yes nail intact, Yes capillary refill normal and No erythema Left Wrist: Yes ROM-Extension 0-60, Yes ROM-Flexion 0-80, Yes ROM-Pronation 0-80, Yes ROM-Supination 0-90, Yes Durken's Test, Yes Tinel's (neg elbow and wrist) and Yes Phalen's; No Thenar Atrophy and No Hypothenar Atrophy Motor: EPL: 5, FDP-2: 5, 1st Dorsal Interosseous: 5 and APB: 5 Sensation: Radial: I, Ulnar: I and Median: I 01/03/25 1338 Date (more content not included)... Normal [facility] Gastroenterology Visit Repor ton 12-13-2024 Gastroenterology Visit Report [facility] [address] [place] [address] OFFICE VISIT Date of Service: 12/13/24 MR#: [id number] Acct: [id number] Name: RAFAT SAUCEDO Rep #: [id number] : 1970 Provider: Solomon Morales DO Age/Sex: 54/M Location: [facility] [place] Status: Signed Intake Vital Signs 05/21/23 06:01 Height 5 ft 2 in Intake Visit Reasons: 6 M FU Chief Complaint: Ulcerative colitis Allergies No Known Allergies Allergy (Verified 05/21/23 06:27) Medications ???Medication ???Instructions ???Recorded ???Confirmed ???Type albuterol sulfate 90 mcg/actuation 1 - 2 puff inhalation Q4H PRN AZ N 12/10/15 12/13/24 Rx aerosol inhaler (Ventolin HFA) Wheezing ##1 mesalamine 1.2 gram tablet,delayed 2.4 g (2 x 1.2 gram) PO DAILY 3 12/24/23 12/13/24 Rx release months #180 tabs PFSH Medical History (Updated 07/01/23 @ 16:[address] Carbajal Friend, ) Asthma Wears glasses Poor historian Smoker Melena Hyperlipidemia Biceps muscle tear Surgical History (Updated 05/18/23 @ 15:52 by Tommie Sigala) History of colonoscopy History of surgery on wrist History of surgery on upper extremity Family History (Updated 02/21/22 @ 13:43 by Tammy Hernandez) Father Myocardial infarction Social History (Updated 02/21/22 @ 13:44 by Tammy Hernandez) Smoking Status: Current some day smoker tobacco type: cigarettes and e-cigarettes Electronic Cigarette Use: with nicotine HPI HPI Chief Complaint: Ulcerative colitis Details: RAFAT SAUCEDO, is a 54 M who presents to the office today for follow up. PMH hyperlipidemia, smoker. Prior workup: Stool ???GI pathogens, C.difficile, ova/parasites were negative. ??? *Screening Colonoscopy [facility] 03.11.22. ?Colonoscopy 03.11.22???Gómez score 2 Left-sided UC. Focal acute colitis with minimal inflammatory cell infiltrate into lamina propria, minimal cryptitis and crypt abscesses OV 7 following screening colonoscopy that revealed Moderately active (Gómez score 2) left sided UC. Several months prior to his colonoscopy Rafat noticed some blood in his stools. This was the first time he had seen this and did not have issues with significant diarrhea or abdominal pain. Since the colonoscopy he has been having normal bowel movements and no further blood in his stools.??? start sulfasalazine and folic acid. ??? PCP OV 02.19.23 as annual follow up with recommendation to re-establish with GI. GI outpatient: ?Colonoscopy 05.21.23???anus to rectum MayoScore 1; remaining exam WNL. Rectal pathology with mild glandular distortion and prominent lymphoid aggregates, quiescent colitis. Contact 05.26.23 with results. Continue sulfasalazine/folic acid. Can do mesalamine supp if symptomatic or having rectal pain. OV 07.01.23 doing well overall without use of maintenance medications.???Start sulfasalazine/folic acid OV 12.23.23- Pt repots she stopped taking sulfasalazine/folic acid in August because it was giving him side effects. Including decreased sex drive, irritability, and nausea. Has felt generally well. Did have one episode of constipation with bloating. This was relieved with OTC Dulcolax. Has questions about UC and if he really needs medication. OV 06.22.24 pt reports that he is feeling well overall and denies GI symptoms of concern at this time. Pt continues with Mesalamine. OV 12.13.24 pt reports that he is feeling well overall and denies GI symptoms of concern at this time. Pt reports regular bowel movements. Pt continues with Mesalamine. ESR / CRP Calp / Lact Serum / AB 9.25.24 6 / <2.9 -- / -- -- / -- ROS Const Constitutional: No fatigue, fever(s) or weight change ENT ENT: No difficulty swallowing Gastro GI: No abdominal pain, belching, bloating, change in bowel habits, change in stool character, coffee ground emesis, constipation, cramping, diarrhea, heartburn, difficulty swallowing, feeling full early, excessive flatus, incontinent of stools, Vomiting blood/hematemesis, Blood in stool, loose stools, Black,tarry stools, nausea/dyspepsia, pain with swallowing, vomiting or other Musc Musculoskeletal: No joint pain Skin Skin: No yellowing of the eye or itchy eyes Psych Psychiatric: No anxiety and No depression Endo Endocrine: No fatigue or weight change Aller/Imm Allergy/Immunologic: No itchy eyes Rahul/Lymp Hematologic/Lymphatic : No easy bleeding or easy bruising Exam Const General: cooperative and comfortable Nutritional Appearance: average body habitus and well nourished [place]UT Head: normal to inspection Ears: hearing grossly normal bilaterally Nose: external nose normal Face and sinus: normal facial exam Mouth: oral mucosae normal Throat: posterior oropharynx normal Eyes Gen (more content not included)... Normal [facility] CBC W/Diff, Automatedon 10-0 -2023 Absolute Lymph 3.10 X10 3/uL Normal 0.83-4.[address] [facility] Comment on above: Performed By: #### L 500.4100, L100.0100, L501.9520, L500.4050 #### [facility] [address] [place], [address] Absolute Neut 3.8 X10 3/uL Normal 2.0-7.[address] [facility] Comment on above: Performed By: #### L 500.4100, L100.0100, L501.9520, L500.4050 #### [facility] [address] [place], [address] Basophils/100 WBC (Bld) 0.9 % Normal 0-[address] [facility] Comment on above: Performed By: #### L 500.4100, L100.0100, L501.9520, L500.4050 #### [facility] [address] [place], [address] Eosinophils/100 WBC (Bld) 4.1 % Normal 0-[address] [facility] Comment on above: Performed By: #### L 500.4100, L100.0100, L501.9520, L500.4050 #### [facility] [address] [place], [address] Erythrocyte distribution width (RBC) [Ratio] 16.1 % High 11.6-14.[address] [facility] Comment on above: Performed By: #### L 500.4100, L100.0100, L501.9520, L500.4050 #### [facility] [address] [place], [address] Hematocrit (Bld) [Volume fraction] 44.2 % Normal 40-[address] [facility] Comment on above: Performed By: #### L 500.4100, L100.0100, L501.9520, L500.4050 #### [facility] [address] [place], [address] Hemoglobin (Bld) [Mass/Vol] 14.1 g/dL Normal 13.0-16.[address] [facility] Comment on above: Performed By: #### L 500.4100, L100.0100, L501.9520, L500.4050 #### [facility] [address] [place], [address] IG% 0.300 Normal 0.0-0.[address] [facility] Comment on above: Result Comment: IG% - Immature Granulocytes (promyelocytes, myelocytes and metamyelocytes) > 1% indicates that a LEFT SHIFT is Present. Performed By: #### L 500.4100, L100.0100, L501.9520, L500.4050 #### [facility] [address] [place], [address] Lymphocytes/100 WBC (Bld) 39.6 % Normal 19-[address] [facility] Comment on above: Performed By: #### L 500.4100, L100.0100, L501.9520, L500.4050 #### [facility] [address] [place], [address] MCH (RBC) [Entitic mass] 28.1 pg Normal 27.0-32.[address] [facility] Comment on above: Performed By: #### L 500.4100, L100.0100, L501.9520, L500.4050 #### [facility] [address] [place], [address] MCHC (RBC) [Mass/Vol] 31.9 g/dL Low 32-36 [facility] Comment on above: Performed By: #### L 500.4100, L100.0100, L501.9520, L500.4050 #### [facility] [address] [place], [address] MCV (RBC) [Entitic vol] 88.0 fL Normal 80-[address] [facility] Comment on above: Performed By: #### L 500.4100, L100.0100, L501.9520, L500.4050 #### [facility] [address] [place], [address] Monocytes/100 WBC (Bld) 6.5 % Normal 0-[address] [facility] Comment on above: Performed By: #### L 500.4100, L100.0100, L501.9520, L500.4050 #### [facility] [address] [place], [address] Neutrophils/100 WBC (Bld) 48.6 % Normal 47-[address] [facility] Comment on above: Performed By: #### L 500.4100, L100.0100, L501.9520, L500.4050 #### [facility] [address] [place], [address] Nucleated RBC (Bld) [#/Vol] 0 10*3/uL Normal 0-[address] [facility] Comment on above: Performed By: #### L 500.4100, L100.0100, L501.9520, L500.4050 #### [facility] [address] [place], [address] Platelet mean volume (Bld) [Entitic vol] 10.0 fL Normal 6.2-12.[address] [facility] Comment on above: Performed By: #### L 500.4100, L100.0100, L501.9520, L500.4050 #### [facility] [address] [place], [address] Platelets (Bld) [#/Vol] 193 10*3/uL Normal 150-[address] [facility] Comment on above: Performed By: #### L 500.4100, L100.0100, L501.9520, L500.4050 #### [facility] [address] [place], [address] RBC (Bld) [#/Vol] 5.02 10*6/uL Normal 4.6-6.2 [facility] Comment on above: Performed By: #### L 500.4100, L100.0100, L501.9520, L500.4050 #### [facility] [address] [place], [address] RDW SD 51.7 fl High 35.1-43.[address] [facility] Comment on above: Performed By: #### L 500.4100, L100.0100, L501.9520, L500.4050 #### [facility] [address] [place], [address] WBC (Bld) [#/Vol] 7.8 10*3/uL Normal 4.4-11.0 [facility] Comment on above: Performed By: #### L 500.4100, L100.0100, L501.9520, L500.4050 #### [facility] [address] [place], [address] Comprehensive Metabolic Prof ilon 07-05-2024 Albumin [Mass/Vol] 3.9 g/dL Normal 3.2-5.0 [facility] Comment on above: Performed By: #### L 500.4100, L100.0100, L501.9520, L500.4050 #### [facility] [address] [place], [address] Albumin/Globulin [Mass ratio] 1.1 {ratio} Normal 0.9-2.[address] [facility] Comment on above: Performed By: #### L 500.4100, L100.0100, L501.9520, L500.4050 #### [facility] [address] [place], [address] ALK P 122 U/L High 45-[address] [facility] Comment on above: Performed By: #### L 500.4100, L100.0100, L501.9520, L500.4050 #### [facility] [address] [place], [address] ALT [Catalytic activity/Vol] 32 U/L Normal 16-[address] [facility] Comment on above: Performed By: #### L 500.4100, L100.0100, L501.9520, L500.4050 #### [facility] [address] [place], [address] AST [Catalytic activity/Vol] 25 U/L Normal 15-[address] [facility] Comment on above: Performed By: #### L 500.4100, L100.0100, L501.9520, L500.4050 #### [facility] [address] [place], [address] Bilirubin [Mass/Vol] 0.50 mg/dL Normal 0.20-1.00 [facility] Comment on above: Result Comment: For patients on eltrombopag therapy, use of Dimension Hallock TBIL is not recommended. Performed By: #### L 500.4100, L100.0100, L501.9520, L500.4050 #### [facility] [address] [place], [address] BUN/CRE 7.4 RATIO Low 10-[address] [facility] Comment on above: Performed By: #### L 500.4100, L100.0100, L501.9520, L500.4050 #### [facility] [address] [place], [address] CA,Total 8.8 mg/dL Normal 8.5-10.[address] [facility] Comment on above: Performed By: #### L 500.4100, L100.0100, L501.9520, L500.4050 #### [facility] [address] [place], [address] Chloride [Moles/Vol] 108 mmol/L High 98-107 [facility] Comment on above: Performed By: #### L 500.4100, L100.0100, L501.9520, L500.4050 #### [facility] [address] [place], [address] CO2 [Moles/Vol] 25.0 mmol/L Normal 21.0-32.[address] [facility] Comment on above: Performed By: #### L 500.4100, L100.0100, L501.9520, L500.4050 #### [facility] [address] [place], [address] Creatinine [Mass/Vol] 1.08 mg/dL Normal 0.70-1.30 [facility] Comment on above: Result Comment: The validity of the calculated GFR GFRAA in patients over 70 years has not been determined. Clinical correlation is essential. Performed By: #### L 500.4100, L100.0100, L501.9520, L500.4050 #### [facility] [address] [place], [address] EST GFR - AA 92 mL/min Normal >[address] [facility] Comment on above: Result Comment: Afri can Burmese GFR Calc Performed By: #### L 500.4100, L100.0100, L501.9520, L500.4050 #### [facility] [address] [place], [address] GAP 6 Normal 5-[address] [facility] Comment on above: Performed By: #### L 500.4100, L100.0100, L501.9520, L500.4050 #### [facility] [address] [place], [address] GFR/1.73 sq M.predicted among non-blacks MDRD (S/P/Bld) [Vol rate/Area] 76 mL/min/{1.73_m2} Normal >[address] [facility] Comment on above: Result Comment: Non- GFR Calc Performed By: #### L 500.4100, L100.0100, L501.9520, L500.4050 #### [facility] [address] [place], [address] Globulin (S) [Mass/Vol] 3.7 g/dL Normal 2.2-4.[address] [facility] Comment on above: Performed By: #### L 500.4100, L100.0100, L501.9520, L500.4050 #### [facility] [address] [place], [address] Glucose [Mass/Vol] 100 mg/dL Normal 74-106 [facility] Comment on above: Result Comment: Fast ing Glucose result from 100 to 125 mg/dL suggests IMPAIRED HOMEOSTASIS per A.D.A. criteria. Performed By: #### L 500.4100, L100.0100, L501.9520, L500.4050 #### [facility] [address] [place], [address] Potassium [Moles/Vol] 3.8 mmol/L Normal 3.5-5.1 [facility] Comment on above: Performed By: #### L 500.4100, L100.0100, L501.9520, L500.4050 #### [facility] [address] [place], [address] Sodium [Moles/Vol] 139 mmol/L Normal 136-145 [facility] Comment on above: Performed By: #### L 500.4100, L100.0100, L501.9520, L500.4050 #### [facility] [address] [place], [address] T PROT 7.6 g/dL Normal 6.4-8.[address] [facility] Comment on above: Performed By: #### L 500.4100, L100.0100, L501.9520, L500.4050 #### [facility] [address] [place], [address] Urea nitrogen [Mass/Vol] 8 mg/dL Normal 7-[address] [facility] Comment on above: Performed By: #### L 500.4100, L100.0100, L501.9520, L500.4050 #### [facility] [address] [place], [address] Lipid Profileon 07-05-2024 Cholesterol [Mass/Vol] 211 mg/dL High 200 [facility] Comment on above: Result Comment: <200 mg/dL Desirable 200-240 mg/dL Borderline >240 mg/dL High Risk Performed By: #### L 500.4100, L100.0100, L501.9520, L500.4050 #### [facility] [address] [place], [address] Cholesterol in HDL [Mass/Vol] 38 mg/dL Low [facility] Comment on above: Result Comment: The drugs N-Acetylcysteine and Metamizole may falsely depress this assay. Reference Range HDL <40 mg/dL Low HDL Cholesterol HDL >or= 60 mg/dL High HDL Cholesterol Performed By: #### L 500.4100, L100.0100, L501.9520, L500.4050 #### [facility] [address] [place], [address] Cholesterol in LDL [Mass/Vol] 147 mg/dL High 0-[address] [facility] Comment on above: Performed By: #### L 500.4100, L100.0100, L501.9520, L500.4050 #### [facility] [address] [place], [address] Cholesterol in VLDL [Mass/Vol] 26 mg/dL Normal 5-[address] [facility] Comment on above: Performed By: #### L 500.4100, L100.0100, L501.9520, L500.4050 #### [facility] [address] [place], [address] Triglyceride [Mass/Vol] 128 mg/dL Normal [facility] Comment on above: Result Comment: The drugs N-Acetylcysteine and Metamizole may falsely depress this assay. Serum Triglycerides Reference Interval Normal <150 mg/dL Borderline high 150 - 199 mg/dL High 200 - 499 mg/dL Very High > or = 500 mg/dL Performed By: #### L 500.4100, L100.0100, L501.9520, L500.4050 #### [facility] [address] [place], [address] Thyroid Stim Hormone (TSH)on 10-08-2024 TSH 1.910 uIU/mL Normal 0.358-3.[address] [facility] Comment on above: Performed By: #### L 500.4100, L100.0100, L501.9520, L500.4050 #### [facility] [address] [place], [address] CBC W/Diff, Automatedon 05-30 Absolute Lymph 2.37 X10 3/uL Normal 0.83-4.[address] [facility] Comment on above: Performed By: #### L 100.0100, L501.6710, L101.9900, L500.4050 #### [facility] [address] [place], [address] Absolute Neut 3.7 X10 3/uL Normal 2.0-7.[address] [facility] Comment on above: Performed By: #### L 100.0100, L501.6710, L101.9900, L500.4050 #### [facility] [address] [place], [address] Basophils/100 WBC (Bld) 0.7 % Normal 0-[address] [facility] Comment on above: Performed By: #### L 100.0100, L501.6710, L101.9900, L500.4050 #### [facility] [address] [place], [address] Eosinophils/100 WBC (Bld) 3.1 % Normal 0-[address] [facility] Comment on above: Performed By: #### L 100.0100, L501.6710, L101.9900, L500.4050 #### [facility] [address] [place], [address] Erythrocyte distribution width (RBC) [Ratio] 16.0 % High 11.6-14.[address] [facility] Comment on above: Performed By: #### L 100.0100, L501.6710, L101.9900, L500.4050 #### [facility] [address] [place], [address] Hematocrit (Bld) [Volume fraction] 43.9 % Normal 40-[address] [facility] Comment on above: Performed By: #### L 100.0100, L501.6710, L101.9900, L500.4050 #### [facility] [address] [place], [address] Hemoglobin (Bld) [Mass/Vol] 13.7 g/dL Normal 13.0-16.[address] [facility] Comment on above: Performed By: #### L 100.0100, L501.6710, L101.9900, L500.4050 #### [facility] [address] [place], [address] IG% 0.400 Normal 0.0-0.[address] [facility] Comment on above: Result Comment: IG% - Immature Granulocytes (promyelocytes, myelocytes and metamyelocytes) > 1% indicates that a LEFT SHIFT is Present. Performed By: #### L 100.0100, L501.6710, L101.9900, L500.4050 #### [facility] [address] [place], [address] Lymphocytes/100 WBC (Bld) 35.0 % Normal 19-[address] [facility] Comment on above: Performed By: #### L 100.0100, L501.6710, L101.9900, L500.4050 #### [facility] [address] [place], [address] MCH (RBC) [Entitic mass] 27.7 pg Normal 27.0-32.[address] [facility] Comment on above: Performed By: #### L 100.0100, L501.6710, L101.9900, L500.4050 #### [facility] [address] [place], [address] MCHC (RBC) [Mass/Vol] 31.2 g/dL Low 32-36 [facility] Comment on above: Performed By: #### L 100.0100, L501.6710, L101.9900, L500.4050 #### [facility] [address] [place], [address] MCV (RBC) [Entitic vol] 88.7 fL Normal 80-[address] [facility] Comment on above: Performed By: #### L 100.0100, L501.6710, L101.9900, L500.4050 #### [facility] [address] [place], [address] Monocytes/100 WBC (Bld) 5.9 % Normal 0-[address] [facility] Comment on above: Performed By: #### L 100.0100, L501.6710, L101.9900, L500.4050 #### [facility] [address] [place], [address] Neutrophils/100 WBC (Bld) 54.9 % Normal 47-[address] [facility] Comment on above: Performed By: #### L 100.0100, L501.6710, L101.9900, L500.4050 #### [facility] [address] [place], [address] Nucleated RBC (Bld) [#/Vol] 0 10*3/uL Normal 0-[address] [facility] Comment on above: Performed By: #### L 100.0100, L501.6710, L101.9900, L500.4050 #### [facility] [address] [place], [address] Platelet mean volume (Bld) [Entitic vol] 11.0 fL Normal 6.2-12.[address] [facility] Comment on above: Performed By: #### L 100.0100, L501.6710, L101.9900, L500.4050 #### [facility] [address] [place], [address] Platelets (Bld) [#/Vol] 167 10*3/uL Normal 150-[address] [facility] Comment on above: Performed By: #### L 100.0100, L501.6710, L101.9900, L500.4050 #### [facility] [address] [place], [address] RBC (Bld) [#/Vol] 4.95 10*6/uL Normal 4.6-6.2 [facility] Comment on above: Performed By: #### L 100.0100, L501.6710, L101.9900, L500.4050 #### [facility] [address] [place], [address] RDW SD 52.2 fl High 35.1-43.[address] [facility] Comment on above: Performed By: #### L 100.0100, L501.6710, L101.9900, L500.4050 #### [facility] [address] [place], [address] WBC (Bld) [#/Vol] 6.8 10*3/uL Normal 4.4-11.0 [facility] Comment on above: Performed By: #### L 100.0100, L501.6710, L101.9900, L500.4050 #### [facility] [address] [place], [address] CRPon 06-22-2024 C-REACTIVE PROT < 2.90 Normal 0.0-3.[address] [facility] Comment on above: Result Comment: C-Re active Protein (CRP) provides useful information for the diagnosis, therapy and monitoring of inflammatory processes and associated diseases. For the evaluation of Relative Risk for Cardiovascular Disease, a High Sensitivity CRP (HSCRP) should be ordered. Performed By: #### L 100.0100, L501.6710, L101.9900, L500.4050 ####[facility] [address] [place], [address] Comprehensive Metabolic Prof ilon 06-22-2024 Albumin [Mass/Vol] 3.7 g/dL Normal 3.2-5.0 [facility] Comment on above: Performed By: #### L 100.0100, L501.6710, L101.9900, L500.4050 ####[facility] [address] [place], [address] Albumin/Globulin [Mass ratio] 1.0 {ratio} Normal 0.9-2.[address] [facility] Comment on above: Performed By: #### L 100.0100, L501.6710, L101.9900, L500.4050 ####[facility] [address] [place], [address] ALK P 110 U/L Normal 45-[address] [facility] Comment on above: Performed By: #### L 100.0100, L501.6710, L101.9900, L500.4050 ####[facility] [address] [place], [address] ALT [Catalytic activity/Vol] 24 U/L Normal 16-[address] [facility] Comment on above: Performed By: #### L 100.0100, L501.6710, L101.9900, L500.4050 ####[facility] [address] [place], [address] AST [Catalytic activity/Vol] 20 U/L Normal 15-[address] [facility] Comment on above: Performed By: #### L 100.0100, L501.6710, L101.9900, L500.4050 ####[facility] [address] [place], [address] Bilirubin [Mass/Vol] 0.30 mg/dL Normal 0.20-1.00 [facility] Comment on above: Result Comment: For patients on eltrombopag therapy, use of Dimension [place] TBIL is not recommended. Performed By: #### L 100.0100, L501.6710, L101.9900, L500.4050 ####[facility] [address] [place], [address] BUN/CRE 10.3 RATIO Normal 10-[address] [facility] Comment on above: Performed By: #### L 100.0100, L501.6710, L101.9900, L500.4050 ####[facility] [address] [place], [address] CA,Total 8.8 mg/dL Normal 8.5-10.[address] [facility] Comment on above: Performed By: #### L 100.0100, L501.6710, L101.9900, L500.4050 ####[facility] [address] [place], [address] Chloride [Moles/Vol] 111 mmol/L High 98-107 [facility] Comment on above: Performed By: #### L 100.0100, L501.6710, L101.9900, L500.4050 ####[facility] [address] [place], [address] CO2 [Moles/Vol] 27.0 mmol/L Normal 21.0-32.[address] [facility] Comment on above: Performed By: #### L 100.0100, L501.6710, L101.9900, L500.4050 ####[facility] [address] [place], [address] Creatinine [Mass/Vol] 1.07 mg/dL Normal 0.70-1.30 [facility] Comment on above: Result Comment: The validity of the calculated GFR GFRAA in patients over 70 years has not been determined. Clinical correlation is essential. Performed By: #### L 100.0100, L501.6710, L101.9900, L500.4050 ####[facility] [address] [place], [address] EST GFR - AA 93 mL/min Normal >[address] [facility] Comment on above: Result Comment: Afri can Burmese GFR Calc Performed By: #### L 100.0100, L501.6710, L101.9900, L500.4050 ####[facility] [address] [place], [address] GAP 4 Low 5-[address] [facility] Comment on above: Performed By: #### L 100.0100, L501.6710, L101.9900, L500.4050 ####[facility] [address] [place], [address] GFR/1.73 sq M.predicted among non-blacks MDRD (S/P/Bld) [Vol rate/Area] 77 mL/min/{1.73_m2} Normal >[address] [facility] Comment on above: Result Comment: Non- GFR Calc Performed By: #### L 100.0100, L501.6710, L101.9900, L500.4050 ####[facility] [address] [place], [address] Globulin (S) [Mass/Vol] 3.7 g/dL Normal 2.2-4.[address] [facility] Comment on above: Performed By: #### L 100.0100, L501.6710, L101.9900, L500.4050 ####[facility] [address] [place], [address] Glucose [Mass/Vol] 121 mg/dL High 74-106 [facility] Comment on above: Result Comment: Fast ing Glucose result from 100 to 125 mg/dL suggests IMPAIRED HOMEOSTASIS per A.D.A. criteria. Performed By: #### L 100.0100, L501.6710, L101.9900, L500.4050 ####[facility] [address] [place], [address] Potassium [Moles/Vol] 3.7 mmol/L Normal 3.5-5.1 [facility] Comment on above: Performed By: #### L 100.0100, L501.6710, L101.9900, L500.4050 ####[facility] [address] [place], [address] Sodium [Moles/Vol] 142 mmol/L Normal 136-145 [facility] Comment on above: Performed By: #### L 100.0100, L501.6710, L101.9900, L500.4050 ####[facility] [address] [place], [address] T PROT 7.4 g/dL Normal 6.4-8.[address] [facility] Comment on above: Performed By: #### L 100.0100, L501.6710, L101.9900, L500.4050 ####[facility] [address] [place], [address] Urea nitrogen [Mass/Vol] 11 mg/dL Normal 7-[address] [facility] Comment on above: Performed By: #### L 100.0100, L501.6710, L101.9900, L500.4050 ####[facility] [address] [place], [address] Erythrocyte Sed Rateon 06-22 SED RATE 6 mm/hr Normal 0-[address] [facility] Comment on above: Performed By: #### L 100.0100, L501.6710, L101.9900, L500.4050 #### [facility] Laboratory [address] [place], [address] Gastroenterology Visit Repor ton 06-22-2024 Gastroenterology Visit Report [facility] [address] [place] [address] OFFICE VISIT Date of Service: 06/22/24 MR#: [id number] Acct: [id number] Name: RAFAT SAUCEDO Rep #: [id number] : 1970 Provider: Solomon Morales DO Age/Sex: 54/M [place] [facility] [place] Status: Signed Intake Vital Signs 05/21/23 06:01 Height 5 ft 2 in Intake Visit Reasons: 6 M FU Chief Complaint: Ulcerative colitis Allergies No Known Allergies Allergy (Verified 05/21/23 06:27) Medications ???Medication ???Instructions ???Recorded ???Confirmed ???Type albuterol sulfate 90 mcg/actuation 1 - 2 puff inhalation Q4H PRN PRN 12/10/15 06/22/24 Rx aerosol inhaler (Ventolin HFA) Wheezing ##1 mesalamine 1.2 gram tablet,delayed 2.4 g (2 x 1.2 gram) PO DAILY 3 12/24/23 06/22/24 Rx release months #180 tabs PFSH Medical History (Updated 07/01/23 @ 16:[address] Carbajal Friend, ) Asthma Wears glasses Poor historian Smoker Melena Hyperlipidemia Biceps muscle tear Surgical History (Updated 05/18/23 @ 15:52 by Tommie Sigala) History of colonoscopy History of surgery on wrist History of surgery on upper extremity Family History (Updated 02/21/22 @ 13:43 by Tammy Hernandez) Father Myocardial infarction Social History (Updated 02/21/22 @ 13:44 by Tammy Hernandez) Smoking Status: Current some day smoker tobacco type: cigarettes and e-cigarettes Electronic Cigarette Use: with nicotine HPI HPI Chief Complaint: Ulcerative colitis Details: RAFAT SAUCEDO, is a 54 M who presents to the office today for follow up. PMH hyperlipidemia, smoker. Prior workup: Stool ???GI pathogens, C.difficile, ova/parasites were negative. ??? *Screening Colonoscopy [facility] 03.11.22. ?Colonoscopy 03.11.22???Gómez score 2 Left-sided UC. Focal acute colitis with minimal inflammatory cell infiltrate into lamina propria, minimal cryptitis and crypt abscesses OV 7.05.19 following screening colonoscopy that revealed Moderately active (Gómez score 2) left sided UC. Several months prior to his colonoscopy Rafat noticed some blood in his stools. This was the first time he had seen this and did not have issues with significant diarrhea or abdominal pain. Since the colonoscopy he has been having normal bowel movements and no further blood in his stools.??? start sulfasalazine and folic acid. ??? PCP OV 02.19.23 as annual follow up with recommendation to re-establish with GI. GI outpatient: ?Colonoscopy 05.21.23???anus to rectum MayoScore 1; remaining exam WNL. Rectal pathology with mild glandular distortion and prominent lymphoid aggregates, quiescent colitis. Contact 05.26.23 with results. Continue sulfasalazine/folic acid. Can do mesalamine supp if symptomatic or having rectal pain. OV 10.. doing well overall without use of maintenance medications.???Start sulfasalazine/folic acid OV 12.23.23- Pt repots she stopped taking sulfasalazine/folic acid in August because it was giving him side effects. Including decreased sex drive, irritability, and nausea. Has felt generally well. Did have one episode of constipation with bloating. This was relieved with OTC Dulcolax. Has questions about UC and if he really needs medication. OV 06.22.24 pt reports that he is feeling well overall and denies GI symptoms of concern at this time. Pt continues with Mesalamine. ESR / CRP Calp / Lact Serum / AB -- / -- -- / -- -- / -- ROS Const Constitutional: No fatigue, fever(s) or weight change ENT ENT: No difficulty swallowing Gastro GI: Positive for abdominal pain; No belching, bloating, change in bowel habits, change in stool character, coffee ground emesis, constipation, cramping, diarrhea, heartburn, difficulty swallowing, feeling full early, excessive flatus, incontinent of stools, Vomiting blood/hematemesis, Blood in stool, loose stools, Black,tarry stools, nausea/dyspepsia, pain with swallowing, vomiting or other Musc Musculoskeletal: No joint pain Skin Skin: No yellowing of the eye or itchy eyes Psych Psychiatric: No anxiety and No depression Endo Endocrine: No fatigue or weight change Aller/Imm Allergy/Immunologic: No itchy eyes Rahul/Lymp Hematologic/Lymphatic : No easy bleeding or easy bruising Exam Const General: cooperative and comfortable Nutritional Appearance: average body habitus and well nourished [facility] Head: normal to inspection Ears: hearing grossly normal bilaterally Nose: external nose normal Face and sinus: normal facial exam Mouth: oral mucosae normal Throat: posterior oropharynx normal Eyes General: appearance normal, both eyes and all related structures Neck Neck: normal visual inspection Chest Chest palpation inspection: normal inspection of the c (more content not included)... Normal [facility] Absolute lymphocyte countOrd ered By: Dr. Huynh on 02-19-2023 Lymphocytes Auto (Unsp spec) [#/Vol] 1.87 10*3/uL 0.83-4.[address] [facility] Basophil percentageOrdered B y: Dr. Huynh on 02-19-2023 Basophils/100 WBC (Bld) 0.8 % 0-[address] [facility] Bilirubin [Mass/Vol] 0.50 mg/dL 0.20-1.00 [facility] Comment on above: For patients on eltr ombopag therapy, use of Dimension Hallock TBIL is not recommended. Chloride [Moles/Vol] 107 mmol/L 98-107 [facility] Eosinophils/100 WBC (Bld) 3.9 % 0-[address] [facility] Glucose [Mass/Vol] 100 mg/dL 74-106 [facility] Comment on above: Fasting Glucose resu lt from 100 to 125 mg/dL suggests IMPAIRED HOMEOSTASIS per A.D.A. criteria. Neutrophils (Bld) [#/Vol] 4.4 10*3/uL 2.0-7.[address] [facility] Neutrophils/100 WBC (Bld) 61.3 % 47-[address] [facility] Potassium [Moles/Vol] 3.8 mmol/L 3.5-5.1 [facility] Protein [Mass/Vol] 7.5 g/dL 6.4-8.2 [facility] Sodium [Moles/Vol] 137 mmol/L 136-145 [facility] WBC (Bld) [#/Vol] 7.2 10*3/uL 4.4-11.0 [facility] Blood erythrocytes count (nu mber/volume)Ordered By: Dr. Huynh on 02-19-2023 RBC (Bld) [#/Vol] 4.98 10*6/uL 4.6-6.2 [facility] Blood hemoglobin measurement (mass/volume)Ordered By: Dr. Huynh on 02-19-2023 Hemoglobin (Bld) [Mass/Vol] 14.2 g/dL 13.0-16.[address] [facility] Blood lymphocytes/100 leukoc ytesOrdered By: Dr. Huynh on 02-19-2023 Lymphocytes/100 WBC (Bld) 26.0 % 19-[address] [facility] Blood monocytes/100 leukocyt esOrdered By: Dr. Huynh on 02-19-2023 Monocytes/100 WBC (Bld) 7.9 % 0-[address] [facility] Blood platelet mean volumeOr dered By: Dr. Huynh on 02-19-2023 Platelet mean volume (Bld) [Entitic vol] 11.1 fL 6.2-12.[address] [facility] Determination of erythrocyte mean corpuscular volume (MCV)Ordered By: Dr. Huynh on 02-19-2023 MCV (RBC) [Entitic vol] 88.2 fL 80-[address] [facility] Hematocrit Auto (Bld) [Volum e fraction]Ordered By: Dr. Huynh on 02-19-2023 Hematocrit (Bld) [Volume fraction] 43.9 % 40-[address] [facility] Laboratory - Chemistry and C hemistry - challengeOrdered By: Dr. Huynh on 02-19-2023 ALP [Catalytic activity/Vol] 87 U/L 45-[address] [facility] ALT [Catalytic activity/Vol] 30 U/L 16-[address] [facility] CO2 [Moles/Vol] 21.0 mmol/L 21.0-32.[address] [facility] Globulin (S) [Mass/Vol] 3.5 g/dL 2.2-4.[address] [facility] Urea nitrogen/Creatinine [Mass ratio] 7.6 mg/mg 10-[address] [facility] Laboratory - Hematology and Cell countsOrdered By: Dr. Huynh on 02-19-2023 Erythrocyte distribution width (RBC) [Entitic vol] 49.8 fL 35.1-43.[address] [facility] Erythrocyte distribution width (RBC) [Ratio] 15.4 % 11.6-14.[address] [facility] Immature granulocytes/100 WBC (Bld) 0.100 % 0.0-0.[address] [facility] Comment on above: IG% - Immature Granu locytes (promyelocytes, myelocytes and metamyelocytes) > 1% indicates that a LEFT SHIFT is Present. MCH (RBC) [Entitic mass] 28.5 pg 27.0-32.[address] [facility] Nucleated RBC/100 WBC (Bld) [Ratio] 0 % 0-[address] [facility] MCHC Auto (RBC) [Mass/Vol]Or dered By: Dr. Huynh on 02-19-2023 MCHC (RBC) [Mass/Vol] 32.3 g/dL 32-36 [facility] No Panel InformationOrdered By: Dr. Huynh on 02-19-2023 Estimated GFR (MDRD) Amer 83 mL/min >[address] [facility] Comment on above: GFR Calc Estimated GFR (MDRD) Non-Af Amer 69 mL/min >[address] [facility] Comment on above: Non- GFR Calc Hepatitis C Antibody Non-Reactive Nonreactive W [facility] Comment on above: Non Reactive: < 0.8 Equivocal: >/= 0.8 to < 1.0 Reactive: >/= 1.0The CDC recommends that a reactive/equivocal HCV antibody result be followed up by the HCV Nucleic Acid Amplificationtest (202303) Thyroid Stimulating Hormone (TSH) 0.85 uIU/mL 0.358-3.[address] [facility] Platelets bldOrdered By: Dr. Huynh on 02-19-2023 Platelets (Bld) [#/Vol] 193 10*3/uL 150-[address] [facility] Serum or plasma albumin irina urement (mass/volume)Ordered By: Dr. Huynh on 02-19-2023 Albumin [Mass/Vol] 4.0 g/dL 3.2-5.0 [facility] Serum or plasma albumin/glob ulin mass ratioOrdered By: Dr. Huynh on 02-19-2023 Albumin/Globulin [Mass ratio] 1.1 {ratio} 0.9-2.[address] [facility] Serum or plasma calcium irina urement (mass/volume)Ordered By: Dr. Huynh on 02-19-2023 Calcium [Mass/Vol] 8.8 mg/dL 8.5-10.1 [facility] Serum or plasma creatinine m easurement (mass/volume)Ordered By: Dr. Huynh on 02-19-2023 Creatinine [Mass/Vol] 1.18 mg/dL 0.70-1.30 [facility] Comment on above: The validity of the calculated GFR & GFRAA in patients over 70 years has not been determined. Clinical correlation is essential. Serum or plasma urea nitroge n measurement (mass/volume)Ordered By: Dr. Huynh on 02-19-2023 Urea nitrogen [Mass/Vol] 9 mg/dL 7-[address] [facility] Thin prep Papanicolaou smear with manual screeningOrdered By: Dr. Huynh on 02-19-2023 Thin prep Papanicolaou smear with manual screening 25 U/L 15-[address] [facility] Thin prep Papanicolaou smear with manual screening 9 5-[address] [facility] CNPNon 02-20-2022 [facility] Telephone (UCTR) RAFAT SAUCEDO ([id number]) 1970 Date Time Provider Department 02/20/22 YAO BASURTO [facility] During your visit today, we recorded the following information about you: Yao Basurto APRN.[facility] 02/20/2022 9:04 AM Signed Patient did not review [employer] message. Can we please reach out to patient and discuss the following. Diandra Banerjee. Your stool studies were negative. This includes the ova and parasite, enteric panel, and c. Diff. Please follow up and continue treatment plan at time of discharge. Deya Allen LPN 02/20/2022 9:32 AM Signed Patient notified.Deya Allen LPN Allergies As of Date: 02/20/2022 (No Known Allergies) Date Reviewed: 02/10/2022 Reviewed by: Antoine Hernandez APRN.INTERNET PROGRAMMER - Fully Assessed Reason for Visit: Results [95] Problem List As Of Date: 02/20/2022 (None) Encounter Status:Closed by DEYA ALLEN LPN on 02/20/22 Normal [facility] Whole blood hemoglobin A1c/t otal hemoglobin ratio (mass fraction)on 02-18-2022 HbA1c (Bld) [Mass fraction] 5.9 % 3.8-5.[address] [facility] Work Phone: Comment on above: Normal < 5.7 % Predi abetic 5.7 - 6.4 % Diabetic >or= 6.5 % Please note range changes. Absolute lymphocyte counton 02-17-2022 Lymphocytes Auto (Unsp spec) [#/Vol] 1.68 10*3/uL 0.83-4.[address] [facility] Work Phone: Basophil percentageon 2021 Basophils/100 WBC (Bld) 0.8 % 0-[address] [facility] Work Phone: Bilirubin [Mass/Vol] 0.60 mg/dL 0.20-1.00 [facility] Work Phone: Comment on above: For patients on eltr ombopag therapy, use of Dimension Hallock TBIL is not recommended. Chloride [Moles/Vol] 107 mmol/L 98-107 [facility] Work Phone: Eosinophils/100 WBC (Bld) 3.9 % 0-[address] [facility] Work Phone: Glucose [Mass/Vol] 155 mg/dL 74-106 [facility] Work Phone: Comment on above: Fasting Glucose resu lt greater than or equal to 126 mg/dL suggests DIABETES MELLITUS per A.D.A. criteria. Neutrophils (Bld) [#/Vol] 4.6 10*3/uL 2.0-7.[address] [facility] Work Phone: Neutrophils/100 WBC (Bld) 64.7 % 47-[address] [facility] Work Phone: Potassium [Moles/Vol] 3.6 mmol/L 3.5-5.1 [facility] Work Phone: Protein [Mass/Vol] 7.9 g/dL 6.4-8.2 [facility] Work Phone: Sodium [Moles/Vol] 138 mmol/L 136-145 [facility] Work Phone: Testosterone [Mass/Vol] 373.58 ng/dL [facility] Work Phone: Comment on above: CENTRAL 90% REFERENC E RANGES MALE AGE <50 197.44 - 669.58 ng/dL MALE AGE > or = 50 187.72 - 684.19 ng/dL FEMALE AGE <50 8.38 - 35.01 ng/dL FEMALE AGE > or = 50 <7.00 - 35.92 ng/dL Effective as of 04/23/21 WBC (Bld) [#/Vol] 7.1 10*3/uL 4.4-11.0 [facility] Work Phone: Blood erythrocytes count (nu mber/volume)on 02-17-2022 RBC (Bld) [#/Vol] 5.01 10*6/uL 4.6-6.2 [facility] Work Phone: Blood hemoglobin measurement (mass/volume)on 02-17-2022 Hemoglobin (Bld) [Mass/Vol] 14.0 g/dL 13.0-16.[address] [facility] Work Phone: Blood lymphocytes/100 leukoc yteson 02-17-2022 Lymphocytes/100 WBC (Bld) 23.7 % 19-[address] [facility] Work Phone: Blood monocytes/100 leukocyt eson 02-17-2022 Monocytes/100 WBC (Bld) 6.6 % 0-[address] [facility] Work Phone: [phone] Blood platelet mean volumeon 02-17-2022 Platelet mean volume (Bld) [Entitic vol] 11.1 fL 6.2-12.[address] [facility] Work Phone: [phone] Determination of erythrocyte mean corpuscular volume (MCV)on 02-17-2022 MCV (RBC) [Entitic vol] 86.4 fL 80-[address] [facility] Work Phone: [phone] Hematocrit Auto (Bld) [Volum e fraction]on 02-17-2022 Hematocrit (Bld) [Volume fraction] 43.3 % 40-[address] [facility] Work Phone: [phone] Laboratory - Chemistry and C hemistry - challengeon 02-17-2022 ALP [Catalytic activity/Vol] 84 U/L 45-[address] [facility] Work Phone: [phone] ALT [Catalytic activity/Vol] 31 U/L 16-[address] [facility] Work Phone: [phone] CO2 [Moles/Vol] 22.0 mmol/L 21.0-32.[address] [facility] Work Phone: [phone] Globulin (S) [Mass/Vol] 3.9 g/dL 2.2-4.[address] [facility] Work Phone: [phone] Urea nitrogen/Creatinine [Mass ratio] 6.6 mg/mg 10-[address] [facility] Work Phone: [phone] Laboratory - Hematology and Cell countson 02-17-2022 Erythrocyte distribution width (RBC) [Entitic vol] 46.9 fL 35.1-43.[address] [facility] Work Phone: [phone] Erythrocyte distribution width (RBC) [Ratio] 14.7 % 11.6-14.[address] [facility] Work Phone: [phone] Immature granulocytes/100 WBC (Bld) 0.300 % 0.0-0.[address] [facility] Work Phone: [phone] Comment on above: IG% - Immature Granu locytes (promyelocytes, myelocytes and metamyelocytes) > 1% indicates that a LEFT SHIFT is Present. MCH (RBC) [Entitic mass] 27.9 pg 27.0-32.[address] [facility] Work Phone: Nucleated RBC/100 WBC (Bld) [Ratio] 0 % 0-[address] [facility] Work Phone: MCHC Auto (RBC) [Mass/Vol]on 02-17-2022 MCHC (RBC) [Mass/Vol] 32.3 g/dL 32-36 [facility] Work Phone: No Panel Informationon 02-17 Estimated GFR (MDRD) Amer 81 mL/min >[address] [facility] Work Phone: Comment on above: GFR Calc Estimated GFR (MDRD) Non-Af Amer 67 mL/min >[address] [facility] Work Phone: Comment on above: Non- GFR Calc Thyroid Stimulating Hormone (TSH) 0.60 uIU/mL 0.358-3.[address] [facility] Work Phone: Platelets bldon 02-17-2022 Platelets (Bld) [#/Vol] 230 10*3/uL 150-[address] [facility] Work Phone: Serum or plasma albumin irina urement (mass/volume)on 02-17-2022 Albumin [Mass/Vol] 4.0 g/dL 3.2-5.0 [facility] Work Phone: Serum or plasma albumin/glob ulin mass ratioon 02-17-2022 Albumin/Globulin [Mass ratio] 1.0 {ratio} 0.9-2.[address] [facility] Work Phone: [phone] Serum or plasma calcium irina urement (mass/volume)on 02-17-2022 Calcium [Mass/Vol] 8.8 mg/dL 8.5-10.1 [facility] Work Phone: [phone] Serum or plasma creatinine m easurement (mass/volume)on 02-17-2022 Creatinine [Mass/Vol] 1.22 mg/dL 0.70-1.30 [facility] Work Phone: [phone] Comment on above: The validity of the calculated GFR & GFRAA in patients over 70 years has not been determined. Clinical correlation is essential. Serum or plasma urea nitroge n measurement (mass/volume)on 02-17-2022 Urea nitrogen [Mass/Vol] 8 mg/dL 7-[address] [facility] Work Phone: Thin prep Papanicolaou smear with manual screeningon 02-17-2022 Thin prep Papanicolaou smear with manual screening 25 U/L 15-[address] [facility] Work Phone: Thin prep Papanicolaou smear with manual screening 9 5-[address] [facility] Work Phone: C diff Tox gens Stl Ql LUIS FERNANDO+p robeon 02-11-2022 C. difficile toxin genes LUIS FERNANDO+probe Ql (Stl) Negative Normal Negative for C. difficile toxin by PCR [facility] Comment on above: Order Comment: Speci men Type: STOOL SPECIMEN Ordering Facility: [facility] Address: [address] [place] [address] Performed By: #### 5 [id number] #### [facility] CLIA [id number] [address] [place] [address] [place] Gastrointestinal pathogens i dentified LUIS FERNANDO+probe Nom (Stl)on 02-11-2022 Campylobacter sp DNA LUIS FERNANDO+probe Nom (Unsp spec) Not detected Normal Not Detected [facility] Comment on above: Order Comment: Speci men Type: STOOL SPECIMEN Ordering Facility: [facility] Address: [address] [place] [address] Performed By: #### 7 9390-1 #### [facility] CLIA [id number] [address] [place] [address] [place] Salmonella sp DNA LUIS FERNANDO+probe Ql (Unsp spec) Not detected Normal Not Detected [facility] Comment on above: Order Comment: Speci men Type: STOOL SPECIMEN Ordering Facility: [facility] Address: [address] [place] [address] Performed By: #### 7 9390-1 #### [facility] CLIA [id number] [address] [place] [address] [place] Shiga toxin stx gene LUIS FERNANDO+probe Nom (Unsp spec) Not detected Normal Not Detected [facility] Comment on above: Order Comment: Speci men Type: STOOL SPECIMEN Ordering Facility: [facility] Address: [address] [place] [address] Performed By: #### 7 9390-1 #### [facility] CLIA [id number] [address] [place] [address] Shigella sp DNA LUIS FERNANDO+probe Ql (Unsp spec) Not detected Normal Not Detected [facility] Comment on above: Order Comment: Speci men Type: STOOL SPECIMEN Ordering Facility: [facility] Address: [address] [place] [address] Performed By: #### 7 9390-1 #### [facility] CLIA [id number] [address] [place] [address] OF [place] O+P Spec Microon 02-11-2022 Ova and parasites identified LM Nom (Unsp spec) OVA AND PARASITE EXAM: No Parasites Seen Normal [facility] Comment on above: Performed By: #### 6 73-4 #### [facility] CLIA [id number] [address] [place] [address] OF [place] CNOVon 02-10-2022 CNOV Office Visit (UCWSTR ) RAFAT SAUCEDO ([id number]) 1970 M Date Time Provider Department 02/10/22 10:30 AM ANTOINE HERNANDEZ [facility] During your visit today, we recorded the following information about you: Temperature Pulse Respiration Blood pressure 97 degrees 80/minute 21/minute 176/100 Weight 87.3 kg Antoine Hernandez APRN.INTERNET PROGRAMMER 02/10/2022 11:14 AM Signed Subjective HPI HPI Rafat Saucedo is a 51 year old male who presents today for CC of gassy, bowel habit changes, blood in stool. This started 1-2 weeks ago, has happened in past. Has tried nothing for relief. Symptoms are worsened by nothing. Denies abd pain. Denies urinary habit changes. Denies nausea/vomiting. .Patient presents with: Acute Visit: blood in stool, very gassy and when passing gas, sometimes ther is fluid, sometimes with blood as well x 1 week No past medical history on file. No past surgical history on file. ALLERGIES Patient has no known allergies. MEDICATIONS No prescriptions on file. No family history on file. Social History Tobacco Use - Smoking status: Current Every Day Smoker - Smokeless tobacco: Never Used Substance Use Topics - Alcohol use: Not on file - Drug use: Not on file ROS Objective Blood pressure 176/100, pulse 80, temperature 36.1 ?C (97 ?F), resp. rate 21, weight 87.3 kg (192 lb 6.4 oz), SpO2 99 %. Physical Exam Constitutional: General: He is not in acute distress. Appearance: He is not toxic-appearing or diaphoretic. HENT: Head: Normocephalic and atraumatic. Cardiovascular: Rate and Rhythm: Normal rate and regular rhythm. Heart sounds: Normal heart sounds, S1 normal and S2 normal. Pulmonary: Effort: Pulmonary effort is normal. Breath sounds: Normal breath sounds. Abdominal: General: Bowel sounds are normal. Palpations: Abdomen is soft. Tenderness: There is no abdominal tenderness. There is no right CVA tenderness or left CVA tenderness. Neurological: Mental Status: He is alert and oriented to person, place, and time. Gait: Gait is intact. ASSESSMENT/PLAN: 1. Blood in stool - ICD9: 578.1, ICD10: K92.1 (primary diagnosis) Labs ordered Will treat per testing if needed Refer back to pcp - OVA + PARA MICROSCOPIC - ENTERIC BACTERIAL PANEL BY PCR - C. DIFFICILE PCR - COLOGUARD - making appointment with pcp this week. 2. Bowel habit changes - ICD9: 787.99, ICD10: R19.4 As above Severe/worsening s/s go to ER. Agrees to plan Antoine Hernandez APRN.CNP Referring Provider: SELF [200] Allergies As of Date: 02/10/2022 (No Known Allergies) Date Reviewed: 02/10/2022 Reviewed by: Antoine Hernandez APRN.FARAZ - Fully Assessed Reason for Visit: Acute Visit [896] Cmt: blood in stool, very gassy and when passing gas, sometimes ther is fluid, sometimes with blood as well x 1 week Primary Visit Diagnosis:Blood in stool [K92.1] Other Visit Diagnosis:Bowel habit changes [R19.4] Order(s):OVA + PARA MICROSCOPIC [SQOVAP] Order #: [id number]. #:[id number] ENTERIC BACTERIAL PANEL BY PCR [SQSTLPCR] Order #: [id number]. #:[id number] C. DIFFICILE PCR [SQCDPCR] Order #: [id number]. #:[id number] COLOGUARD [SQCOLGRD] Order #: [id number] Problem List As Of Date: 02/10/2022 (None) Encounter Status:Closed by ANTOINE HERNANDEZ on 02/10/22 [facility] CNOVon 12-11-2021 CNOV Office Visit (UCWSTR ) RAFAT SAUCEDO ([id number]) 1970 M Date Time Provider Department 12/11/21 2:00 PM YAO BASURTO ELIZA During your visit today, we recorded the following information about you: Temperature Pulse Respiration Blood pressure 98 degrees 82/minute 21/minute 124/86 Weight 84.3 kg Yao Basurto APRN.CNP 12/11/2021 2:23 PM Signed Viral illness (primary encounter diagnosis) Uri, acute You have been diagnosed with an illness caused by a virus. Antibiotics do not cure viral infections. If given when not needed, antibiotics can be harmful. The treatments described below will help you feel better while your body's own defenses are fighting the virus. General Instructions: Drink extra water and juice. Use a cool mist vaporizer or saline nasal spray to relieve congestion. For Sore throats, use ice chips or sore throat spray; lozenges for older children and adults. Specific Medications: Fever, aches, ear pain: Use medicines according to the package instructions or as directed by your healthcare provider. Stop the medication when the symptoms get better. No follow-ups on file. Yao Basurto APRN.FARAZ 12/11/2021 6:33 PM Signed This note was created using [employer]. Rossy Saucedo is a 51 year old male. 51 year old male with no PMH presents with complaints of illness. sore throat, congestion AND cough with clear phlegm. Acute onset of symptoms was 1 day ago. +sore throat + congestion + cough with clear phlegm. States symptoms are worse this morning. C/O headache 2/10 with runny nose Denies fever or chills. Denies N,V,D States that he needs a work note. and it isn't COVID and I don't want a test The history is provided by the patient. No foreign languages department chair was used. Sore Throat This is a new problem. The current episode started yesterday. The problem has been unchanged. Neither side of throat is experiencing more pain than the other. There has been no fever. The pain is at a severity of 2/10. The pain is mild. Associated symptoms include congestion, coughing and headaches. Pertinent negatives include no abdominal pain, diarrhea, drooling, ear discharge, ear pain, hoarse voice, plugged ear sensation, neck pain, shortness of breath, stridor, swollen glands, trouble swallowing or vomiting. He has had no exposure to strep or mono. He has tried nothing for the symptoms. The treatment provided no relief. No past medical history on file. No past surgical history on file. ALLERGIES Patient has no known allergies. MEDICATIONS No prescriptions on file. No family history on file. Social History Tobacco Use - Smoking status: Current Every Day Smoker - Smokeless tobacco: Never Used Substance Use Topics - Alcohol use: Not on file - Drug use: Not on file Review of Systems Constitutional: Negative for activity change, appetite change, chills, diaphoresis, fatigue, fever and unexpected weight change. HENT: Positive for congestion, postnasal drip, rhinorrhea and sore throat. Negative for dental problem, drooling, ear discharge, ear pain, facial swelling, hearing loss, hoarse voice, mouth sores, nosebleeds, sinus pressure, sinus pain, sneezing, tinnitus, trouble swallowing and voice change. Eyes: Negative for photophobia, pain, discharge, redness, itching and visual disturbance. Respiratory: Positive for cough. Negative for apnea, choking, chest tightness, shortness of breath, wheezing and stridor. Cardiovascular: Negative for chest pain. Gastrointestinal: Negative for abdominal distention, abdominal pain, diarrhea, nausea and vomiting. Genitourinary: Negative. Musculoskeletal: Negative for back pain, neck pain and neck stiffness. Skin: Negative for rash. Allergic/Immunologic: Negative for environmental allergies, food allergies and immunocompromised state. Neurological: Positive for headaches. Negative for dizziness and light-headedness. Hematological: Negative for adenopathy. Does not bruise/bleed easily. Psychiatric/Behaviora l: Negative. Negative for agitation and behavioral problems. Objective BP 124/86 Pulse 82 Temp 36.7 ?C (98 ?F) Resp 21 Wt 84.3 kg (185 lb 12.8 oz) SpO2 98% Physical Exam Vitals and nursing note reviewed. Constitutional: General: He is not in acute distress. Appearance: Normal appearance. He is normal weight. He is not ill-appearing, toxic-appearing or diaphoretic. HENT: Head: Normocephalic and atraumatic. Right Ear: Tympanic membrane, ear canal and external ear normal. There is no impacted cerumen. Left Ear: Tympanic membrane, ear canal and external ear normal. There is no impacted cerumen. Nose: Rhinorrhea present. Mouth/Throat: Mouth: Mucous membranes are moist. Pharynx: Oropharynx is clear. No oropharyngeal exudate or posterior oropharyngeal erythema. Eyes: General: No scle (more content not included)... Normal [facility] CNOVon 07-27-2021 CNOV Office Visit (UCWSTR ) RAFAT SAUCEDO ([id number]) 1970 M Date Time Provider Department 07/27/21 2:30 PM AYO BASURTO During your visit today, we recorded the following information about you: Temperature Pulse Respiration Blood pressure 97.5 degrees 56/minute 16/minute 124/86 Weight 87.4 kg Yao Basurto APRN.CNP 07/27/2021 2:53 PM Signed This note was created using Smart Cuber[employer]. Subjective Rafat Saucedo is a 51 year old male. 51 year old male with no PMH presents with complaints of right ear pain. Acute onset of symptoms was 2 to 3 days ago clogged up Decreased hearing. Endorses that today he noticed that the ear is painful. Ache. Sharp Denies fever or chills. Denies accompanying URI sx. Denies cough or congestion. 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 No foreign languages department chair was used. Ear Pain This is a new problem. The current episode started in the past 7 days. The problem occurs constantly. The problem has been gradually worsening. Pertinent negatives include no abdominal pain, anorexia, arthralgias, change in bowel habit, chest pain, chills, congestion, coughing, diaphoresis, fatigue, fever, headaches, joint swelling, myalgias, nausea, neck pain, numbness, rash, sore throat, swollen glands, urinary symptoms, vertigo, visual change, vomiting or weakness. Nothing aggravates the symptoms. He has tried nothing for the symptoms. The treatment provided no relief. No past medical history on file. No past surgical history on file. ALLERGIES Patient has no known allergies. MEDICATIONS amoxicillin (AMOXIL) 875 mg tablet Take 1 tablet by mouth twice daily for 10 days. No family history on file. Social History Tobacco Use - Smoking status: Current Every Day Smoker - Smokeless tobacco: Never Used Substance Use Topics - Alcohol use: Not on file - Drug use: Not on file Review of Systems Constitutional: Negative for chills, diaphoresis, fatigue and fever. HENT: Positive for ear pain and hearing loss. Negative for congestion, dental problem, drooling, ear discharge, facial swelling, mouth sores, nosebleeds, postnasal drip, rhinorrhea, sinus pressure, sinus pain, sneezing and sore throat. Eyes: Negative for photophobia, pain, discharge, redness, itching and visual disturbance. Respiratory: Negative for apnea, cough, choking and chest tightness. Cardiovascular: Negative for chest pain, palpitations and leg swelling. Gastrointestinal: Negative for abdominal pain, anorexia, change in bowel habit, diarrhea, nausea and vomiting. Musculoskeletal: Negative for arthralgias, joint swelling, myalgias and neck pain. Skin: Negative for color change, pallor, rash and wound. Allergic/Immunologic: Negative for environmental allergies, food allergies and immunocompromised state. Neurological: Negative for dizziness, vertigo, facial asymmetry, weakness, light-headedness, numbness and headaches. Hematological: Negative for adenopathy. Does not bruise/bleed easily. Psychiatric/Behaviora l: Negative for agitation and behavioral problems. Objective BP 124/86 Pulse (!) 56 Temp 36.4 ?C (97.5 ?F) (Left Tympanic) Resp 16 Wt 87.4 kg (192 lb 9.6 oz) SpO2 98% Physical Exam Vitals and nursing note reviewed. Constitutional: General: He is not in acute distress. Appearance: Normal appearance. He is not ill-appearing, toxic-appearing or diaphoretic. HENT: Head: Normocephalic and atraumatic. Right Ear: There is impacted cerumen. Left Ear: External ear normal. Ears: Comments: Right TM initially unable to be visualized related to cerumen impaction. After MA irrigated the TM is erythematous and bulging and patient remains with pain. hearing better, but still achy Nose: Nose normal. No congestion or rhinorrhea. Mouth/Throat: Mouth: Mucous membranes are moist. Pharynx: Oropharynx is clear. No oropharyngeal exudate or posterior oropharyngeal erythema. Eyes: General: Right eye: No discharge. Left eye: No discharge. Extraocular Movements: Extraocular movements intact. Conjunctiva/sclera: Conjunctivae normal. Pupils: Pupils are equal, round, and reactive to light. Cardiovascular: Rate and Rhythm: Normal rate and regular rhythm. Pulses: Normal pulses. Heart sounds: Normal heart sounds. No murmur heard. No friction rub. No gallop. Pulmonary: Effort: Pulmonary effort is normal. No respiratory distress. Breath sounds: Normal breath sounds. No stridor. No wheezing, rhonchi or rales. Chest: Chest wall: No tenderness. Abdominal: General: Abdomen is flat. There is no distension. Palpations: Abdomen is soft. There is no mass. Tenderness: There is no abdominal tenderness. There is no guarding or rebound. Hernia: No hernia is present. Musculoskeletal: General: No swelling, tenderness, deformity or sign (more content not included)... Normal [facility] Vital Signs Date Time Vital Sign Value Performing Clinician Faci lity 02-21-2025 09:08-0400 Body height 157.[address] Gagandeep Huynh MD Work Phone: [facility] 02-21-2025 09:08-0400 Body mass index (BMI) [Ratio] 29.2 kg/m2 Dr. Gagandeep Huynh MD Work Phone: [facility] 02-21-2025 09:08-0400 Body weight 72.[address] Gagandeep Huynh MD Work Phone: [facility] 01-03-2025 13:16-0400 Body height 157.[address] Gagandeep Huynh MD Work Phone: [facility] 01-03-2025 13:16-0400 Body mass index (BMI) [Ratio] 32.9 kg/m2 Dr. Gagandeep Huynh MD Work Phone: [facility] 01-03-2025 13:16-0400 Body weight 81.[address] Gagandeep Huynh MD Work Phone: [facility] 03-11-2022 16:12-0400 Body temperature 98.7 [degF] Dr. Gagandeep Huynh Work Phone: [facility] Work Phone: 03-11-2022 16:12-0400 Diastolic blood pressure 91 mm[Hg] Dr. Gagandeep Huynh Work Phone: [facility] Work Phone: 03-11-2022 16:12-0400 Heart rate 48 /min Dr. Gagandeep Huynh Work Phone: [facility] Work Phone: 03-11-2022 16:12-0400 Respiratory rate 16 /min Dr. Gagandeep Huynh Work Phone: [facility] Work Phone: 03-11-2022 16:12-0400 SaO2% (BldA) [Mass fraction] 100 % Dr. Gagandeep Huynh Work Phone: [facility] Work Phone: 03-11-2022 16:12-0400 Systolic blood pressure 141 mm[Hg] Dr. Gagandeep Huynh Work Phone: [facility] Work Phone: 03-11-2022 14:18-0400 Body height 157.[address] Gagandeep Huynh Work Phone: [facility] Work Phone: 03-11-2022 14:18-0400 Body mass index (BMI) [Ratio] 33.7 kg/m2 Dr. Gagandeep Huynh Work Phone: [facility] Work Phone: 03-11-2022 14:18-0400 Body weight 83.[address] Gaagndeep Huynh Work Phone: [facility] Work Phone: 02-21-2022 13:49-0400 Body mass index (BMI) [Ratio] 25.8 kg/m2 Dr. Gagandeep Huynh Work Phone: [facility] Work Phone: 02-21-2022 13:49-0400 Body weight 81.[address] Gagandeep Huynh Work Phone: [facility] Work Phone: 02-10-2022 10:39-0400 Body temperature 97 [degF] Antoine Hernandez APRN.INTERNET PROGRAMMER Work Phone: [facility] 02-10-2022 10:39-0400 Body weight 87.27 kg Antoine Hernandez E COMMERCE DEVELOPER.INTERNET PROGRAMMER Work Phone: [facility] 02-10-2022 10:39-0400 Diastolic blood pressure 100 mm[Hg] Antoine Hernandez E COMMERCE DEVELOPER.INTERNET PROGRAMMER Work Phone: [facility] 02-10-2022 10:39-0400 Heart rate 80 /min Antoine Hernandez E COMMERCE DEVELOPER.INTERNET PROGRAMMER Work Phone: [facility] 02-10-2022 10:39-0400 Respiratory rate 21 /min Antoine Hernandez E COMMERCE DEVELOPER.INTERNET PROGRAMMER Work Phone: [facility] 02-10-2022 10:39-0400 SaO2% (BldA) [Mass fraction] 99 % Antoine Hernandez E COMMERCE DEVELOPER.INTERNET PROGRAMMER Work Phone: [facility] 02-10-2022 10:39-0400 Systolic blood pressure 176 mm[Hg] Antoine Hernandez E COMMERCE DEVELOPER.INTERNET PROGRAMMER Work Phone: [facility] Encounters Encounter Date Encounter Type Care Provider Facility Start: 03-11-2025 ambulatory [facility] Facility:[facility] Start: 02-21-2025 End: 02-21-[address] Luther Fernández MD -[facility] Start: 02-21-2025 End: 02-21-[address] Gagandeep Huynh MD Work Phone: [facility] Work Phone: Start: 02-10-2025 ambulatory [facility] Start: 02-01-2025 ambulatory Daisy Lee Facility:[facility] Start: 02-01-2025 Non-patient / Non-visit Dr. Daisy Lee MD -[facility]- Start: 02-01-2025 End: 02-01-[address] Gagandeep Huynh MD Work Phone: [facility] Work Phone: Start: 02-01-2025 End: 02-01-[address] Yasir Underwood MD -Pulmonary Services/Neurology Work Phone: Start: 02-01-2025 End: 02-01-2025 ambulatory Gagandeep Chi Lino Facility:[facility] Start: 01-03-2025 End: 01-03-[address] Yasir Underwood MD -[facility] Work Phone: Start: 01-03-2025 End: 01-03-2025 ambulatory Gagandeep Chi Lino Facility:[facility] Start: 12-13-2024 End: 12-13-2024 ambulatory Gagandeep Chi Lino Facility:[facility] Start: 12-13-2024 End: 12-13-2024 Patient encounter procedure Solomonsara Morales DO -[facility] Work Phone: Start: 07-05-2024 End: 07-05-2024 ambulatory Gagandeep Chi Lino Facility:[facility] Start: 06-22-2024 End: 06-22-2024 ambulatory Gagandeep Chi Lino Facility:[facility] Start: 06-22-2024 End: 06-22-2024 ambulatory Gagandeep Chi Lino Facility:[facility] Start: 06-15-2024 ambulatory Gagandeep Chi Lino Facility:[facility] Start: 02-27-2023 Non-patient / Non-visit Dr. Gagandeep Huynh Work Phone: [facility] Start: 02-26-2023 End: 02-26-[address] Gagandeep Huynh Work Phone: [facility] Work Phone: Start: 02-26-2023 End: 02-26-[address] Gagandeep Huynh Work Phone: [facility]-Pulmonary Services/Neurology Start: 02-19-2023 End: 02-19-[address] Gagandeep Huynh Work Phone: [facility] Work Phone: Start: 02-19-2023 End: 02-19-[address] Gagandeep Huynh Work Phone: [facility]-Laboratory, Phy Office 3rd Flr Start: 03-11-2022 Non-patient / Non-visit Dr. Gagandeep Huynh Work Phone: [facility] Start: 03-11-2022 End: 03-11-2022 Admission to same day surgery center Dr. Gagandeep Huynh Work Phone: [facility]-Endoscopy Start: 02-21-2022 Non-patient / Non-visit Dr. Gagandeep Huynh Work Phone: [facility] Start: 02-20-2022 Telephone encounter Yao Butler jaky E COMMERCE DEVELOPER.INTERNET PROGRAMMER Work Phone: [facility] Comment on above: Results Start: 02-17-2022 End: 02-17-2022 Patient encounter procedure [facility]-Laboratory, Phy Office 3rd Flr Start: 02-10-2022 End: 02-10-2022 Patient encounter procedure Antoine David E COMMERCE DEVELOPER.INTERNET PROGRAMMER Work Phone: [facility] Comment on above: Blood in stool (Prim zbigniew Dx); Bowel habit changes Procedures Date Procedure Procedure Detail Performing Clinician Start: 03-11-[address] Gagandeep ortiz Work Phone: Plan of Treatment Date Care Activity Detail Author Start: 02-21-2025 X-ray of cervical spine Cerv Spine 4 or [address] [facility] Start: 05-29-2022 Influenza vaccination INFLUENZ A (Season Ended) [facility] Start: 2021 SHINGRIX VACCINE (1 of 2) SHINGRIX VACCINE (1 of 2) [facility] Start: 2016 COLOGUARD (FIT-DNA) COLOGUARD (FIT-D NA) [facility] Start: 2016 Colonoscopy COLONOSCOPY [facility] Start: 2016 COLORECTAL CANCER SCREENING COLORECTAL CANCER SCREENING [facility] Start: [address] COLONOGRAPHY [facility] Start: 2016 DIABETES SCREEN DIABETES SCREEN [facility] Start: 2016 FECAL OCCULT BLOOD FECAL OCCULT BLOO D [facility] Start: 2016 SIGMOIDOSCOPY SIGMOIDOSCOPY [facility] Start: 2006 LIPID SCREEN LIPID SCREEN [facility] Start: 1990 Urine microalbumin profile DTAP,TDAP,TD (1 - Tdap) [facility] Start: 1989 HEPATITIS C SCREENING HEPATITIS C SC REENING [facility] Start: 1989 HIV SCREENING HIV SCREENING [facility] Start: 1983 Adult depression screening assessment DEPRESSION SCREENING [facility] Start: 1977 PNEUMOCOCCAL (1 - PCV) PNEUMOCOCCAL (1 - PCV) [facility] Start: 1976 COVID-19 VACCINE (#1) COVID-19 VACCI NE (#1) [facility] Clostridioides diffi cile toxin genes [Presence] in Stool by LUIS FERNANDO with probe detection C. DIFFICILE PCR Lab Routine Blood in stool Ordered: 02/10/2022 [facility] Work Phone: Comment on above: Ordered: 02/10/2022 COLOGUARD COLOGUARD Lab Ro utine Blood in stool Ordered: 02/10/2022 [facility] Work Phone: Comment on above: Ordered: 02/10/2022 ENTERIC BACTERIAL PA ARACELY BY PCR ENTERIC BACTERIAL PANEL BY PCR Lab Routine Blood in stool Ordered: 02/10/2022 [facility] Work Phone: Comment on above: Ordered: 02/10/2022 Ova and parasites identified in Unspecified specimen by Light microscopy OVA + PARA MICROSCOPIC Microbiology Routine Blood in stool Ordered: 02/10/2022 [facility] Work Phone: Comment on above: Ordered: 02/10/2022 Patient referral [facility] Work Phone: Immunizations Immunization Date Immunization Notes Care Provider Fa al 10-16-2014 tetanus and diphther ia toxoids, adsorbed, preservative free, for adult use (2 Lf of tetanus toxoid and 2 Lf of diphtheria toxoid) [facility] Payers Date Payer Category Payer Self-pay [id number] 2023 Unknown [id number] 2021 Unknown MMO MMO [employer] [id number] 2021-Present [phone] [address] [place] [address] O [id number] 2016 Unknown [id number] Unknown [id number] Unknown [id number] Unknown [id number] Unknown [id number] Unknown [id number] Unknown [id number] Unknown [id number] Unknown [id number] Unknown [id number] Unknown [id number] Unknown [id number] Unknown [id number] Social History Date Type Detail Facility Start: [facility]-20-2017 [facility] Work Phone: Start: 01-20-2017 Tobacco use and exposure Smokeless tobacco non-user [facility] Work Phone: Start: 1970 Sex Assigned At Not on file [facility] Start: 01-31-2022 End: 02-10-2022 Exposure to SARS-CoV-2 (event) Not sure [facility] Work Phone: Start: 07-24-2016 End: 04-04-2022 Tobacco smoking status NHIS Unknown if ever smoked [facility] Start: 1970 Sex Assigned At Male W [facility] Start: 12-23-2023 Tobacco smoking stat us NHIS Current some day smoker [facility] Mental Status Date Assessment Result Facility 03-11-2022 Cognitive function Level Of Consciousness Sedated [facility] Work Phone: 03-11-2022 Cognitive function Patient Oriandrew gaspar Person;Place;Time [facility] Work Phone: Clinical Notes 07-27-2021 to 02-01-2025 Note Date & Type Note Facility 02-01-2025 Procedure note [facility] 12-13-2024 Evaluation note Diagnosis Onset Date Resolution Ulcerative colitis acute December 13, 2024 8:03am Bilateral carpal tunnel syndrome acute January 03, 2025 1:16pm [facility] Work Phone: 1(782) 573-830406-02-2023 Procedure [facility] 02-20-2022 Miscellaneous Notes* Telephone Encounter - Deya Allen LPN - 02/20/2022 9:32 AM EDT Patient notified.Deya Allen LPN * Telephone Encounter - Yao Basurto APRN.INTERNET PROGRAMMER - 02/20/2022 9:04 AM EDT Patient did not review [employer] message. Can we please reach out to patient and discuss the following. Diandra Banerjee. Your stool studies were negative. This includes the ova and parasite, enteric panel, and c. Diff. Please follow up and continue treatment plan at time of discharge. [facility] NoteHNO ID: [id number] Author: Antoine Hernandez APRN.FARAZ Service: ? Author Type: Nurse Practitioner Type: Progress Notes Filed: 02/10/2022 11:14 AM Note Text: Subjective HPI HPI Rafat Saucedo is a 51 year old male who presents today for CC of gassy, bowel habit changes, blood in stool. This started 1-2 weeks ago, has happened in past. Has tried nothing for relief. Symptoms are worsened by nothing. Denies abd pain. Denies urinary habit changes. Denies nausea/vomiting. .Patient presents with: Acute Visit: blood in stool, very gassy and when passing gas, sometimes ther is fluid, sometimes with blood as well x 1 week No past medical history on file. No past surgical history on file. ALLERGIES Patient has no known allergies. MEDICATIONS No prescriptions on file. No family history on file. Social History Tobacco Use - Smoking status: Current Every Day Smoker - Smokeless tobacco: Never Used Substance Use Topics - Alcohol use: Not on file - Drug use: Not on file ROS Objective Blood pressure 176/100, pulse 80, temperature 36.1 ?C (97 ?F), resp. rate 21, weight 87.3 kg (192 lb 6.4 oz), SpO2 99 %. Physical Exam Constitutional: General: He is not in acute distress. Appearance: He is not toxic-appearing or diaphoretic. HENT: Head: Normocephalic and atraumatic. Cardiovascular: Rate and Rhythm: Normal rate and regular rhythm. Heart sounds: Normal heart sounds, S1 normal and S2 normal. Pulmonary: Effort: Pulmonary effort is normal. Breath sounds: Normal breath sounds. Abdominal: General: Bowel sounds are normal. Palpations: Abdomen is soft. Tenderness: There is no abdominal tenderness. There is no right CVA tenderness or left CVA tenderness. Neurological: Mental Status: He is alert and oriented to person, place, and time. Gait: Gait is intact. ASSESSMENT/PLAN: 1. Blood in stool - ICD9: 578.1, ICD10: K92.1 (primary diagnosis) Labs ordered Will treat per testing if needed Refer back to pcp - OVA + PARA MICROSCOPIC - ENTERIC BACTERIAL PANEL BY PCR - C. DIFFICILE PCR - COLOGUARD - making appointment with pcp this week. 2. Bowel habit changes - ICD9: 787.99, ICD10: R19.4 As above Severe/worsening s/s go to ER. Agrees to plan Antoine Hernandez APRN.[facility] History of Present illness Narrative* Antoine Hernandez APRN.FARAZ - 02/10/2022 10:42 AM EDT Subjective HPI HPI Rafat Saucedo is a 51 year old male who presents today for CC of gassy, bowel habit changes, blood in stool. This started 1-2 weeks ago, has happened in past. Has tried nothing for relief. Symptoms are worsened by nothing. Denies abd pain. Denies urinary habit changes. Denies nausea/vomiting. .Patient presents with: Acute Visit: blood in stool, very gassy and when passing gas, sometimes ther is fluid, sometimes with blood as well x 1 week No past medical history on file. No past surgical history on file. ALLERGIES Patient has no known allergies. MEDICATIONS No prescriptions on file. No family history on file. Social History Tobacco Use Smoking status: Current Every Day Smoker Smokeless tobacco: Never Used Substance Use Topics Alcohol use: Not on file Drug use: Not on file ROS Objective Blood pressure 176/100, pulse 80, temperature 36.1 C (97 F), resp. rate 21, weight 87.3 kg (192 lb 6.4 oz), SpO2 99 %. Physical Exam Constitutional: General: He is not in acute distress. Appearance: He is not toxic-appearing or diaphoretic. HENT: Head: Normocephalic and atraumatic. Cardiovascular: Rate and Rhythm: Normal rate and regular rhythm. Heart sounds: Normal heart sounds, S1 normal and S2 normal. Pulmonary: Effort: Pulmonary effort is normal. Breath sounds: Normal breath sounds. Abdominal: General: Bowel sounds are normal. Palpations: Abdomen is soft. Tenderness: There is no abdominal tenderness. There is no right CVA tenderness or left CVA tenderness. Neurological: Mental Status: He is alert and oriented to person, place, and time. Gait: Gait is intact. ASSESSMENT/PLAN: 1. Blood in stool - ICD9: 578.1, ICD10: K92.1 (primary diagnosis) Labs ordered Will treat per testing if needed Refer back to pcp - OVA + PARA MICROSCOPIC - ENTERIC BACTERIAL PANEL BY PCR - C. DIFFICILE PCR - COLOGUARD - making appointment with pcp this week. 2. Bowel habit changes - ICD9: 787.99, ICD10: R19.4 As above Severe/worsening s/s go to ER. Agrees to plan Antoine Hernandez APRN.CNP documented in this encounterA[facility]22 NoteHNO ID: [id number] Author: Yao Basurto APRN.CNP Service: ? Author Type: Nurse Practitioner Type: Progress Notes Filed: 12/11/2021 6:33 PM Note Text: This note was created using [employer]. Subjective Rafat Saucedo is a 51 year old male. 51 year old male with no PMH presents with complaints of illness. sore throat, congestion AND cough with clear phlegm. Acute onset of symptoms was 1 day ago. +sore throat + congestion + cough with clear phlegm. States symptoms are worse this morning. C/O headache 2/10 with runny nose Denies fever or chills. Denies N,V,D States that he needs a work note. and it isn't COVID and I don't want a test The history is provided by the patient. No foreign languages department chair was used. Sore Throat This is a new problem. The current episode started yesterday. The problem has been unchanged. Neither side of throat is experiencing more pain than the other. There has been no fever. The pain is at a severity of 2/10. The pain is mild. Associated symptoms include congestion, coughing and headaches. Pertinent negatives include no abdominal pain, diarrhea, drooling, ear discharge, ear pain, hoarse voice, plugged ear sensation, neck pain, shortness of breath, stridor, swollen glands, trouble swallowing or vomiting. He has had no exposure to strep or mono. He has tried nothing for the symptoms. The treatment provided no relief. No past medical history on file. No past surgical history on file. ALLERGIES Patient has no known allergies. MEDICATIONS No prescriptions on file. No family history on file. Social History Tobacco Use - Smoking status: Current Every Day Smoker - Smokeless tobacco: Never Used Substance Use Topics - Alcohol use: Not on file - Drug use: Not on file Review of Systems Constitutional: Negative for activity change, appetite change, chills, diaphoresis, fatigue, fever and unexpected weight change. HENT: Positive for congestion, postnasal drip, rhinorrhea and sore throat. Negative for dental problem, drooling, ear discharge, ear pain, facial swelling, hearing loss, hoarse voice, mouth sores, nosebleeds, sinus pressure, sinus pain, sneezing, tinnitus, trouble swallowing and voice change. Eyes: Negative for photophobia, pain, discharge, redness, itching and visual disturbance. Respiratory: Positive for cough. Negative for apnea, choking, chest tightness, shortness of breath, wheezing and stridor. Cardiovascular: Negative for chest pain. Gastrointestinal: Negative for abdominal distention, abdominal pain, diarrhea, nausea and vomiting. Genitourinary: Negative. Musculoskeletal: Negative for back pain, neck pain and neck stiffness. Skin: Negative for rash. Allergic/Immunologic: Negative for environmental allergies, food allergies and immunocompromised state. Neurological: Positive for headaches. Negative for dizziness and light-headedness. Hematological: Negative for adenopathy. Does not bruise/bleed easily. Psychiatric/Behavioral: Negative. Negative for agitation and behavioral problems. Objective BP 124/86 Pulse 82 Temp 36.7 ?C (98 ?F) Resp 21 Wt 84.3 kg (185 lb 12.8 oz) SpO2 98% Physical Exam Vitals and nursing note reviewed. Constitutional: General: He is not in acute distress. Appearance: Normal appearance. He is normal weight. He is not ill-appearing, toxic-appearing or diaphoretic. HENT: Head: Normocephalic and atraumatic. Right Ear: Tympanic membrane, ear canal and external ear normal. There is no impacted cerumen. Left Ear: Tympanic membrane, ear canal and external ear normal. There is no impacted cerumen. Nose: Rhinorrhea present. Mouth/Throat: Mouth: Mucous membranes are moist. Pharynx: Oropharynx is clear. No oropharyngeal exudate or posterior oropharyngeal erythema. Eyes: General: No scleral icterus. Right eye: No discharge. Left eye: No discharge. Extraocular Movements: Extraocular movements intact. Conjunctiva/sclera: Conjunctivae normal. Pupils: Pupils are equal, round, and reactive to light. Cardiovascular: Rate and Rhythm: Normal rate and regular rhythm. Pulses: Normal pulses. Heart sounds: Normal heart sounds. Pulmonary: Effort: Pulmonary effort is normal. No respiratory distress. Breath sounds: Normal breath sounds. No stridor. No wheezing, rhonchi or rales. Chest: Chest wall: No tenderness. Abdominal: General: Abdomen is flat. Bowel sounds are normal. There is no distension. Palpations: Abdomen is soft. Tenderness: There is no abdominal tenderness. Musculoskeletal: General: No swelling, tenderness or deformity. Normal range of motion. Cervical back: Normal range of motion and neck supple. No rigidity or tenderness. Lymphadenopathy: Cervical: No cervical adenopathy. Skin: General: Skin is warm and dry. Capillary Refill: Capillary refill takes less than 2 seconds. Neurological: General: No focal deficit present. Mental (more content not included)...[facility]10[facility] Note HNO ID: [id number] Author: Yoa Basurto APRN.INTERNET PROGRAMMER Service: ? Author Type: Nurse Practitioner Type: Progress Notes Filed: 07/27/2021 2:53 PM Note Text: This note was created using [employer]. Subjective Rafat Saucedo is a 51 year old male. 51 year old male with no PMH presents with complaints of right ear pain. Acute onset of symptoms was 2 to 3 days ago clogged up Decreased hearing. Endorses that today he noticed that the ear is painful. Ache. Sharp Denies fever or chills. Denies accompanying URI sx. Denies cough or congestion. 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 No foreign languages department chair was used. Ear Pain This is a new problem. The current episode started in the past 7 days. The problem occurs constantly. The problem has been gradually worsening. Pertinent negatives include no abdominal pain, anorexia, arthralgias, change in bowel habit, chest pain, chills, congestion, coughing, diaphoresis, fatigue, fever, headaches, joint swelling, myalgias, nausea, neck pain, numbness, rash, sore throat, swollen glands, urinary symptoms, vertigo, visual change, vomiting or weakness. Nothing aggravates the symptoms. He has tried nothing for the symptoms. The treatment provided no relief. No past medical history on file. No past surgical history on file. ALLERGIES Patient has no known allergies. MEDICATIONS amoxicillin (AMOXIL) 875 mg tablet Take 1 tablet by mouth twice daily for 10 days. No family history on file. Social History Tobacco Use - Smoking status: Current Every Day Smoker - Smokeless tobacco: Never Used Substance Use Topics - Alcohol use: Not on file - Drug use: Not on file Review of Systems Constitutional: Negative for chills, diaphoresis, fatigue and fever. HENT: Positive for ear pain and hearing loss. Negative for congestion, dental problem, drooling, ear discharge, facial swelling, mouth sores, nosebleeds, postnasal drip, rhinorrhea, sinus pressure, sinus pain, sneezing and sore throat. Eyes: Negative for photophobia, pain, discharge, redness, itching and visual disturbance. Respiratory: Negative for apnea, cough, choking and chest tightness. Cardiovascular: Negative for chest pain, palpitations and leg swelling. Gastrointestinal: Negative for abdominal pain, anorexia, change in bowel habit, diarrhea, nausea and vomiting. Musculoskeletal: Negative for arthralgias, joint swelling, myalgias and neck pain. Skin: Negative for color change, pallor, rash and wound. Allergic/Immunologic: Negative for environmental allergies, food allergies and immunocompromised state. Neurological: Negative for dizziness, vertigo, facial asymmetry, weakness, light-headedness, numbness and headaches. Hematological: Negative for adenopathy. Does not bruise/bleed easily. Psychiatric/Behavioral: Negative for agitation and behavioral problems. Objective BP 124/86 Pulse (!) 56 Temp 36.4 ?C (97.5 ?F) (Left Tympanic) Resp 16 Wt 87.4 kg (192 lb 9.6 oz) SpO2 98% Physical Exam Vitals and nursing note reviewed. Constitutional: General: He is not in acute distress. Appearance: Normal appearance. He is not ill-appearing, toxic-appearing or diaphoretic. HENT: Head: Normocephalic and atraumatic. Right Ear: There is impacted cerumen. Left Ear: External ear normal. Ears: Comments: Right TM initially unable to be visualized related to cerumen impaction. After MA irrigated the TM is erythematous and bulging and patient remains with pain. hearing better, but still achy Nose: Nose normal. No congestion or rhinorrhea. Mouth/Throat: Mouth: Mucous membranes are moist. Pharynx: Oropharynx is clear. No oropharyngeal exudate or posterior oropharyngeal erythema. Eyes: General: Right eye: No discharge. Left eye: No discharge. Extraocular Movements: Extraocular movements intact. Conjunctiva/sclera: Conjunctivae normal. Pupils: Pupils are equal, round, and reactive to light. Cardiovascular: Rate and Rhythm: Normal rate and regular rhythm. Pulses: Normal pulses. Heart sounds: Normal heart sounds. No murmur heard. No friction rub. No gallop. Pulmonary: Effort: Pulmonary effort is normal. No respiratory distress. Breath sounds: Normal breath sounds. No stridor. No wheezing, rhonchi or rales. Chest: Chest wall: No tenderness. Abdominal: General: Abdomen is flat. There is no distension. Palpations: Abdomen is soft. There is no mass. Tenderness: There is no abdominal tenderness. There is no guarding or rebound. Hernia: No hernia is present. Musculoskeletal: General: No swelling, tenderness, deformity or signs of injury. Normal range of motion. Cervical back: Normal range of motion and neck supple. No rigidity or tenderness. Right lower leg: No edema. Left lower leg: No edema. Lymphadenopathy: Cervical: No cervical adenopathy. Skin: General: Skin is warm and dry. Capillary (more content not included)...[facility]* Diagnosis Blood in stool- Primary Bowel habit changes Other symptoms involving digestive system documented in this encounter [facility] noteNo assessment information availableWMercy Health St. [facility] Work Phone: Evaluation note* Diagnosis Onset Date Resolution Status Encounter for screening for malignant neoplasm of colo n [facility] Work Phone: Reason for referral (narrative)No reason for referral information availableWMercy Health St. [facility] Work Phone: Advance Directives No Advanced Directives Records Found Advance Directive Response Recorded Date/ Time Advance Directives No July 24, 2016 2:12pm Living Will No July 24 16 2:12pm Power of Train Dispatcher No July 24, 2016 2:12pm Advance Directive Response Recorded Date/ Time Advance Directives No July 24, 2016 2:12pm Living Will No March 05, 2022 1 0:35am Power of Train Dispatcher No March 05, 2022 10:35am Advance Directive Response Recorded Date/ Time Advance Directives No March 24 10:39am Living Will No March 24, 2022 10:39am Power of Train Dispatcher No March 24 10:39am Advance Directive Response Recorded Date/ Time Living Will No May 18 3:46pm Do you have a Healthcare Power of Train Dispatcher? No May 18, 2023 3:46pm Advance Directives No March 24 10:39am Summary Purpose Family History No Family History Records Found Relationship Condition Age at Onset Recorded Date/T daria father Myocardial infarction Unknown Chief Complaint and Reason for Visit Chief Complaint Amb Documentation Reason for Visit Encounter for screen ing for malignant neoplasm of colon Chief Complaint SOB Shortness of breath Chief Complaint Admit Date 6 M FU December 13, 2024 8:0 3am BL HANDS January 03, 2025 1:16 pm LUE; eval for L carpal tunnel February 01 025 1:09pm LUE; eval for L carpal tunnel February 01 025 2:21pm Reason for Visit Admit Date Ulcerative colitis December 13, 2024 8:0 3am Bilateral carpal tunnel syndrome January 032024 1:16pm Chief Complaint Admit Date 6 M FU December 13, 2024 8:0 3am BL HANDS January 03, 2025 1:16 pm LUE; eval for L carpal tunnel February 01 025 1:09pm LUE; eval for L carpal tunnel February 01 025 2:21pm CERVICAL SPINE February 21, 2025 9:01a m Room 3 February 21, 2025 9:20a m Additional Source Comments Source Comments (unrecognize d section and content) In the event this informatio n is protected by the Federal Confidentiality of Alcohol and Drug Abuse Patient Records regulations: The Federal rules restrict any use of the information to criminally investigate or prosecute any alcohol or drug abuse patient.[facility] SystemIn the event this information is protected by the Federal Confidentiality of Alcohol and Drug Abuse Patient Records regulations: The Federal rules restrict any use of the information to criminally investigate or prosecute any alcohol or drug abuse patient.[facility] Reason for Visit (unrecogniz ed section and content) Reason Comments Acute Visit blood in stool, very gassy and when passing gas, sometimes ther is fluid, sometimes with blood as well x 1 week Reason Comments Results Care Teams (unrecognized sec tion and content) Devops Developer Relationship Specialty Start Date End Date Gagandeep Huynh Chi PCP - General Gerontology 01/20/17 Devops Developer Relationship Specialty Start Date End Date Gagandeep Huynh Chi PCP - General Gerontology 01/20/17 Team Status: Active Member Role Status Dates Dr. Gagandeep Huynh MD Family Provider Active Dr. Gagandeep Huynh MD Primary Care Provider Active Team Status: Active Member Role Status Dates Dr. Gagandeep Huynh MD Primary Care Provi adeel, Referring Provider, Other Provider Active Dr. Lakhwinder Myles DO Attending Provider Active Team Status: Active Member Role Status Dates Dr. Gagandeep Huynh MD Primary Care Provider, Attending Provider Active Team Status: Inactive Member Role Status Dates Dr. Gagandeep Huynh MD Primary Care Provi adeel, Attending Provider, Referring Provider Active Team Status: Inactive Member Role Status Dates Dr. Gagandeep Huynh MD Primary Care Provider, Attending Provider Active Team Status: Active Member Role Status Dates Dr. Gagandeep Huynh MD Primary Care Provider Active Team Status: Inactive Member Role Status Dates Dr. Gagandeep Huynh MD Primary Care Provider Active Start: December 13, 2024 End: December 13, 2024 Dr. Gagandeep Huynh MD Referring Provider Active Start: December 13, 2024 End: December 13, 2024 Dr. Solomon Morales DO Attending Provider Active Start: December 13, 2024 End: December 13, 2024 Team Status: Inactive Member Role Status Dates Dr. Gagandeep Huynh MD Primary Care Provider Active Start: January 03, 2025 End: January 03, 2025 Dr. Gagandeep Huynh MD Referring Provider Active Start: January 03, 2025 End: January 03, 2025 Yasir Underwood MD Attending Provider Active St art: January 03, 2025 End: January 03, 2025 Team Status: Inactive Member Role Status Dates Dr. Gagandeep Huynh MD Primary Care Provider Active Start: February 01, 2025 End: February 01, 2025 Yasir Underwood MD Attending Provider Active St art: February 01, 2025 End: February 01, 2025 Yasir Underwood MD Referring Provider Active St art: February 01, 2025 End: February 01, 2025 Team Status: Active Member Role Status Dates Dr. Gagandeep Huynh MD Primary Care Provider Active Start: February 01, 2025 Yasir Underwood MD Referring Provider Active St art: February 01, 2025 Yasir Underwood MD Other Provider Active Start: February 01, 2025 Dr. Daisy Lee MD Attending Provider Active S tart: February 01, 2025 Team Status: Active Member Role Status Dates Dr. Gagandeep Huynh MD Primary Care Provider Active Start: February 21, 2025 Dr. Gagandeep Huynh MD Referring Provider Active Start: February 21, 2025 HUMAIRA Obrien Attending Provider Active Star t: February 21, 2025 Team Status: Inactive Member Role Status Dates Dr. Gagandeep Huynh MD Primary Care Provider Active Start: February 21, 2025 End: February 21, 2025 Dr. Luther Fernández MD Attending Provider Active S tart: February 21, 2025 End: February 21, 2025 Team Status: Inactive Member Role Status Dates Dr. Gagandeep Huynh MD Primary Care Provider Active Start: February 21, 2025 End: February 21, 2025 Dr. Gagandeep Huynh MD Referring Provider Active Start: February 21, 2025 End: February 21, 2025 HUMAIRA Obrien Attending Provider Active Star t: February 21, 2025 End: February 21, 2025 Goals (unrecognized section and content) Goals may be documented in a n alternate sectionGoals may be documented in an alternate sectionGoals may be documented in an alternate sectionGoals may be documented in an alternate sectionGoals may be documented in an alternate sectionGoals may be documented in an alternate sectionGoals may be documented in an alternate section (unrecognized sect ion and content) No Status Records FoundNo Status Records Found INFORMATION SOURCE (unrecogn ized section and content) DATE CREATED AUTHOR 02/21/2022 [facility] DATE CREATED AUTHOR AUTHOR'S SURESH SHELDON 03/08/2025 [facility] FOR RECORDS PERTAINING TO PATIENTS WHO ARE OR HAVE BEEN ENROLLED IN A CHEMICAL DEPENDENCY/SUBSTANCEABUSE PROGRAM, SOME INFORMATION MAY BE OMITTED. This clinical summary was aggregated from multiple sources. Caution should be exercised in using it in the provision of clinical care. This summary normalizes information from multiple sources, and as a consequence, information in this document may materially change the coding, format and clinical context of patient data. In addition, data may be omitted in some cases. CLINICAL DECISIONS SHOULD BE BASED ON THE PRIMARY CLINICAL RECORDS. [employer] provides no warranty or guarantee of the accuracy or completeness of information in this document.
--- NOTE | 2025-03-11 08:00 | MRI_ITS ---
PROCEDURE: MRI SPINE CERVICAL (ROUTINE) 03/11/2025 REASON FOR EXAM: PAIN, WEAKNESS TECHNIQUE: Multiplanar and multisequence images were obtained without IV contrast administration. COMPARISON: Cervical spine radiograph from 02/21/2025. FINDINGS: There is mild chronic loss of the cervical vertebral body heights. There is diminished signal intensity involving the discs throughout the cervical spine relating to degenerative disc disease with disc space narrowing and endplate spurring. No acute fracture or subluxation is identified. There is straightening of the cervical lordosis with mild reversal. Cervical spinal cord demonstrates a normal signal intensity and morphology. Cerebellar tonsils are within normal range. Paraspinous musculature is unremarkable. Individual levels: C2-C3: Mild disc osteophyte complex results in mild flattening of the ventral thecal sac with no significant central canal stenosis or neural foraminal narrowing. Mild facet arthropathy is present. C3-C4: Disc osteophyte complex results in flattening of the ventral thecal sac and abutment of the ventral spinal cord with mild central canal stenosis. Facet/uncovertebral changes are identified with moderate bilateral neural foraminal narrowing. C4-C5: Disc osteophyte complex results in flattening of the ventral thecal sac and abutment of the ventral spinal cord with mild to moderate central canal stenosis. Facet/uncovertebral changes are present with severe right and moderate to severe left neural foraminal narrowing. C5-C6: Disc osteophyte complex results in flattening of the ventral thecal sac and abutment of the ventral spinal cord with moderate central canal stenosis. Facet/uncovertebral changes are present with severe bilateral neural foraminal narrowing. C6-C7: Disc osteophyte complex results in flattening of the ventral thecal sac with [id number] central canal stenosis. Facet/uncovertebral changes are present with severe left and moderate right neural foraminal narrowing. C7-T1: Disc osteophyte complex results in mild flattening of the ventral thecal sac with mild central canal stenosis. Facet/uncovertebral changes are present with severe left neural foraminal narrowing. Right neural foramina is patent. MRI/Spine Cervical (Routine) IMPRESSION: 1. Multilevel degenerative disc disease and spondylosis with moderate central c anal stenosis at C5-C6, [id number] central canal stenosis at C4-C5 and C6-C7 and mild central canal stenosis at C3-C4 and C7-T1. Multilevel varying degrees of neural foraminal narrowing are identified which are mostly on a moderate to severe bas is. 2. No acute fracture. 3. No abnormal cord signal. Reading Location: [facility]
== END | disposition home or self-care (01) ==
LOC: MRI 07:51
PROVIDERS: PCP Family Medicine Geriatric Medicine; Referring Provider Student in an Organized Health Care Education/Training Program; Visit Provider Student in an Organized Health Care Education/Training Program
DX: M54.9 Dorsalgia, unspecified (principal); R53.1 Weakness
CPT/HCPCS: 72141

== ENCOUNTER → 2025-07-25 | Outpatient (CLI) | payer OTHER, SELFPAY ==
[2025-07-25 17:01] LABS: Hematocrit 44.2 % (40-54); Hemoglobin 14.5 g/dL (13.0-16.5); Immature Granulocytes Count 0.010 X10^3/uL (0.0-0.0); Mean Corp Hgb Conc 32.8 g/dL (32-36); Mean Corpuscular Volume 86.3 fL (80-94); Mean Platelet Vol. 10.7 fl (6.2-12.0); NRBC Flagged by Analyzer 0 % (0-5); Platelet Count 198 K/mm3 (150-450); RBC Distribution Width CV 15.4 % (11.6-14.6); RBC Distribution Width SD 49.0 fl (35.1-43.9); Red Blood Count 5.12 M/mm3 (4.6-6.2); White Blood Count 7.5 K/mm3 (4.4-11.0)
[2025-07-25 17:52] LABS: AST(SGOT) 29 U/L (<=37); Alanine Aminotransfer ALT/SGPT 19 U/L (<=46); Albumin, Serum 4.4 g/dL (3.5-5.0); Alkaline Phosphatase 81 U/L (40-129); Anion Gap 10 (5-15); BUN 10 mg/dL (4-19); BUN/Creat Ratio 9.7 RATIO (10-20); Calcium,Total 9.1 mg/dL (7.6-11.0); Carbon Dioxide 23.7 mmol/L (21.0-32.0); Chloride 105 mmol/L (98-108); Cholesterol 189 mg/dL (<=200); Globulin 3.2 g/dL (2.2-4.2); Glucose 97 mg/dL (70-99); Low Density Lipoprotein Calc. 141 mg/dL; Potassium 3.8 mmol/L (3.3-5.1); Triglycerides 60 mg/dL; Very Low Density Lipoprotein 12 mg/dL (5-40); cholesterol:hdl ratio screen 5.12
[2025-07-26 00:28] LABS: Xtra Tube Kwok EXTRA TUBE
== END | disposition home or self-care (01) ==
PROVIDERS: PCP Family Medicine Geriatric Medicine; Visit Provider Family Medicine Geriatric Medicine
DX: E78.5 Hyperlipidemia, unspecified (principal); R53.83 Other fatigue
CPT/HCPCS: 36415; 80053; 80061; 84443; 85025